=== PATIENT | male | born 1955 | race African-American/Black ===

== ENCOUNTER 2017-01-12 18:31 | Emergency (ER) | payer SELFPAY ==
[~2017-01-12] VITALS: Ht 172.7 cm; Wt 82.0 kg
[~2017-01-12 18:31] MED LIST: ALBU25PO2 HHN; AMLO5TAB88 PO; ASPI325T2 PO; PRED-431 PO; QUET200T PO; RISP2 PO
[2017-01-12 19:03] LABS: CHLORIDE 107 mEq/L (98-107); INR 1.2; PROTHROMBIN TIME 12.2 sec
[2017-01-12 19:08] LABS: CARBON DIOXIDE 24 mEq/L (21-32); ETHANOL BLOOD 27 mg/dL
[2017-01-12 19:11] LABS: BASOPHILS % 0.6 % (0.0-2.0); EOSINOPHILS % 1.8 % (0.0-5.0); HEMATOCRIT. 33.6 % (42.0-52.0); HEMOGLOBIN. 11.1 g/dL (14.0-18.0); LYMPHOCYTES % 16.4 % (20.0-50.0); MEAN CORPUSCULAR HEMOGLOBIN 25.7 pg (28.0-32.0); MEAN CORPUSCULAR VOLUME 77.9 fL (80.0-94.0); MEAN PLATELET VOLUME 9.3 fl (7.4-10.4); MONOCYTES % 12.8 % (2.0-8.0); NEUTROPHILS % 68.4 % (40.0-76.0); PLATELET 138 x1000/uL (130-400); RED BLOOD CELL COUNT 4.31 mill/uL (4.7-6.1); RED CELL DISTRIBUTION WIDTH 15.7 % (11.6-14.6)
[2017-01-12 19:12] LABS: TROPONIN I < 0.02 ng/mL (0.00-0.04)
[2017-01-12 21:43] LABS: *AMPHETAMINES SCREEN URINE NEGATIVE (NEGATIVE); *BARBITURATES SCREEN URINE NEGATIVE (NEGATIVE); *BENZODIAZEPINES SCREEN URINE NEGATIVE (NEGATIVE); *COCAINE SCREEN URINE PRESUMTIVE POSITIVE (NEGATIVE); CANNABINOID URINE SCREEN NEGATIVE (NEGATIVE); METHADONE URINE SCREEN NEGATIVE (NEGATIVE); OPIATES URINE SCREEN NEGATIVE (NEGATIVE); PHENCYCLIDINE URINE SCREEN NEGATIVE (NEGATIVE)
[2017-01-12] MEDS ORDERED: DIPHENHYDRAMINE 25MG CAPSULE PO ONE (22:30)
[2017-01-12] MEDS ORDERED: POTASSIUM CHLORIDE 20MEQ TABLET SR PO ONE (23:15)
[2017-01-13 04:30] VITALS: BP 123/76
== END 2017-01-13 06:53 | disposition home or self-care (01) ==
LOC: ER 18:41
DX: T40.5X1A Poisoning by cocaine, accidental (unintentional), initial encounter (principal); E87.6 Hypokalemia; R07.89 Other chest pain; J44.9 Chronic obstructive pulmonary disease, unspecified; E11.9 Type 2 diabetes mellitus without complications; I10 Essential (primary) hypertension; Z88.0 Allergy status to penicillin; Z79.82 Long term (current) use of aspirin; Y92.9 Unspecified place or not applicable
CPT/HCPCS: 36415; 71010; 80053; 80305; 83880; 84484; 85025; 85610; 93005; 99285; G0482; Z7610; Q0163

== ENCOUNTER 2017-01-13 07:15 | Emergency (ER) | payer SELFPAY ==
[~2017-01-13] VITALS: Ht 172.7 cm; Wt 96.0 kg
[~2017-01-13 07:15] MED LIST changes: +ASPI-986 PO; -ASPI325T2 PO
[2017-01-13 11:01] VITALS: BP 122/82
[2017-01-13 12:15] LABS: BASOPHILS % 0.4 % (0.0-2.0); EOSINOPHILS % 2.8 % (0.0-5.0); HEMATOCRIT. 34.8 % (42.0-52.0); HEMOGLOBIN. 11.7 g/dL (14.0-18.0); LYMPHOCYTES % 24.8 % (20.0-50.0); MEAN CORPUSCULAR HEMOGLOBIN 26.1 pg (28.0-32.0); MEAN CORPUSCULAR VOLUME 77.3 fL (80.0-94.0); MEAN PLATELET VOLUME 8.5 fl (7.4-10.4); MONOCYTES % 12.4 % (2.0-8.0); NEUTROPHILS % 59.6 % (40.0-76.0); PLATELET 134 x1000/uL (130-400); RED CELL DISTRIBUTION WIDTH 15.5 % (11.6-14.6)
[2017-01-13 12:29] LABS: CARBON DIOXIDE 26 mEq/L (21-32); CHLORIDE 109 mEq/L (98-107); ETHANOL BLOOD < 10 mg/dL
[2017-01-13] MEDS ORDERED: QUETIAPINE FUMARATE 100MG TABLET PO SCH ×2 (12:30)
[2017-01-13 14:12] LABS: *AMPHETAMINES SCREEN URINE NEGATIVE (NEGATIVE); *BARBITURATES SCREEN URINE NEGATIVE (NEGATIVE); *BENZODIAZEPINES SCREEN URINE NEGATIVE (NEGATIVE); *COCAINE SCREEN URINE PRESUMTIVE POSITIVE (NEGATIVE); CANNABINOID URINE SCREEN NEGATIVE (NEGATIVE); METHADONE URINE SCREEN NEGATIVE (NEGATIVE); OPIATES URINE SCREEN NEGATIVE (NEGATIVE); PHENCYCLIDINE URINE SCREEN NEGATIVE (NEGATIVE)
== END 2017-01-13 17:34 | disposition home or self-care (01) ==
LOC: ER 08:02
DX: R45.851 Suicidal ideations (principal); R44.0 Auditory hallucinations; R45.850 Homicidal ideations; I10 Essential (primary) hypertension; J44.9 Chronic obstructive pulmonary disease, unspecified; E11.9 Type 2 diabetes mellitus without complications; F17.200 Nicotine dependence, unspecified, uncomplicated; Z88.0 Allergy status to penicillin; Z79.82 Long term (current) use of aspirin
CPT/HCPCS: 36415; 80048; 80305; 80307; 80329; 85025; 99284; G0482

== ENCOUNTER 2018-01-28 19:57 | Emergency (ER) | payer MEDICAID ==
[~2018-01-28] VITALS: Ht 182.9 cm; Wt 170.0 kg
[2018-01-28 21:27] LABS: BASOPHILS % 0.8 % (0.0-2.0); EOSINOPHILS % 0.2 % (0.0-5.0); HEMOGLOBIN. 11.5 g/dL (14.0-18.0); LYMPHOCYTES % 9.7 % (20.0-50.0); MEAN CORPUSCULAR HEMOGLOBIN 25.7 pg (28.0-32.0); MEAN CORPUSCULAR VOLUME 77.8 fL (80.0-94.0); MEAN PLATELET VOLUME 9.5 fl (7.4-10.4); MONOCYTES % 6.9 % (2.0-8.0); NEUTROPHILS % 82.4 % (40.0-76.0); PLATELET 121 x1000/uL (130-400)
[2018-01-28 21:30] LABS: CHLORIDE 106 mEq/L (98-107)
[2018-01-28 21:32] LABS: INR 1.1; PROTHROMBIN TIME 11.8 sec (9.4-11.6)
[2018-01-29 00:17] VITALS: BP 128/76
[2018-01-30] MEDS ORDERED: PRED-431 PO (06:22)
[2018-01-30] MEDS ORDERED: QUET200T PO (06:22)
[2018-01-30] MEDS ORDERED: ALBU25PO2 HHN (06:22)
[2018-01-30] MEDS ORDERED: RISP2 PO (06:22)
== END 2018-01-29 00:19 | disposition home or self-care (01) ==
LOC: ER 19:57
DX: R07.89 Other chest pain (principal); D72.829 Elevated white blood cell count, unspecified; D50.9 Iron deficiency anemia, unspecified; R74.0 Nonspecific elevation of levels of transaminase and lactic acid dehydrogenase [LDH]; D69.6 Thrombocytopenia, unspecified; J44.9 Chronic obstructive pulmonary disease, unspecified; F20.9 Schizophrenia, unspecified; E11.9 Type 2 diabetes mellitus without complications; F17.200 Nicotine dependence, unspecified, uncomplicated; Z88.0 Allergy status to penicillin
CPT/HCPCS: 36415; 71045; 80053; 83880; 84484; 85025; 85610; 93005; 99285; Z7610

== ENCOUNTER 2018-01-29 03:50 | Emergency (ER) | payer SELFPAY ==
[2018-01-30] MEDS ORDERED: RISP2 PO (06:22)
[2018-01-30] MEDS ORDERED: ALBU25PO2 HHN (06:22)
[2018-01-30] MEDS ORDERED: QUET200T PO (06:22)
[2018-01-30] MEDS ORDERED: PRED-431 PO (06:22)
== END 2018-01-29 08:36 | disposition left against medical advice (07) ==
LOC: ER 03:50
DX: R06.02 Shortness of breath (principal); Z53.21 Procedure and treatment not carried out due to patient leaving prior to being seen by health care provider

== ENCOUNTER 2018-08-14 04:08 | Inpatient (IN) | payer MEDICAID ==
[~2018-08-14] VITALS: Ht 172.7 cm; Wt 90.7 kg
[2018-08-14] MEDS ORDERED: IPRATROPIUM BROMIDE (0.02%) 0.5MG/2.5ML NEB HHN STA (04:36)
[2018-08-14] MEDS ORDERED: ALBUTEROL (0.083%) 2.5MG/3ML NEB HHN STA (04:36)
[2018-08-14] MEDS ORDERED: PREDNISONE 20MG TABLET PO STA (04:36)
[2018-08-14] MEDS ORDERED: MAGNESIUM 2 G PREMIX 50 ML IV ONE (04:45)
[2018-08-14 05:20] LABS: CHLORIDE 103 mEq/L (98-107)
[2018-08-14 05:31] LABS: HEMATOCRIT. 43.2 % (42.0-52.0); HEMOGLOBIN. 14.4 g/dL (14.0-18.0); MEAN CORPUSCULAR HEMOGLOBIN 27.1 pg (28.0-32.0); MEAN CORPUSCULAR VOLUME 81.3 fL (80.0-94.0); MEAN PLATELET VOLUME 9.2 fl (7.4-10.4); PLATELET 150 x1000/uL (130-400); RED BLOOD CELL COUNT 5.32 mill/uL (4.7-6.1); RED CELL DISTRIBUTION WIDTH 15.9 % (11.6-14.6)
[2018-08-14] MEDS ORDERED: ALBUTEROL (0.5%) 2.5MG/0.5ML NEB HHN ONE (05:34)
[2018-08-14] MEDS ORDERED: IPRATROPIUM/ALBUTEROL 0.5-3(2.5)MG/3ML NEB ONE (05:34)
[2018-08-14 06:13] LABS: PLATELET ESTIMATE NORMAL
[2018-08-14 10:54] VITALS: BP 147/91
[2018-08-14] MEDS ORDERED: METF-815 MT (11:24)
[2018-08-14 12:00] VITALS: BP 131/87
[2018-08-14] MEDS ORDERED: ONDANSETRON HCL 4MG/2ML INJ IV PRN (13:15)
[2018-08-14] MEDS ORDERED: HYDROCODONE/ACETAMINOPHEN 5/325MG TABLET PO PRN (13:15)
[2018-08-14] MEDS ORDERED: AMLODIPINE 5MG TABLET PO SCH (13:15)
[2018-08-14] MEDS ORDERED: DEXTROSE 50% WATER 50ML SYRINGE IV PRN (13:15)
[2018-08-14] MEDS ORDERED: POTASSIUM CHLORIDE 20MEQ TABLET SR PO NR (13:38)
[2018-08-14] MEDS: METHYLPREDNISOLONE SOD SUCC 40 MG/ML VIAL IV SCH ×2 (14:52→21:23)
[2018-08-14] MEDS: ENOXAPARIN 40MG/0.4ML SYR SUBCUT SCH (14:52)
[2018-08-14] MEDS: ASPIRIN 81MG TABLET PO SCH (14:53)
[2018-08-14] MEDS: LEVOFLOXACIN 500MG PREMIX 100 ML IV SCH (14:54)
[2018-08-14 16:00] VITALS: BP 129/82
[2018-08-14] MEDS: IPRATROPIUM/ALBUTEROL 0.5-3(2.5)MG/3ML NEB HHN SCH ×2 (17:07→22:23)
[2018-08-14] MEDS: INSULIN LISPRO 100 UNITS/ML SUBCUT SCH ×2 (17:30→21:00)
[2018-08-14] MEDS: BLOOD SUGAR DIAGNOSTIC STRIP TEST SCH ×2 (17:30→21:26)
[2018-08-14 18:21] LABS: CREATINE KINASE MB FRACTION 5.5 ng/mL (0.5-3.6)
[2018-08-14 20:00] VITALS: BP 138/84
[2018-08-14] MEDS: AMLODIPINE 5MG TABLET PO SCH (21:23)
[2018-08-14] MEDS: QUETIAPINE FUMARATE 100MG TABLET PO SCH (21:23)
[2018-08-15] VITALS: BP 125/63
[2018-08-15 00:24] LABS: CREATINE KINASE MB FRACTION 5.2 ng/mL (0.5-3.6)
[2018-08-15] MEDS: IPRATROPIUM/ALBUTEROL 0.5-3(2.5)MG/3ML NEB HHN SCH ×5 (02:24→19:55)
[2018-08-15 04:00] VITALS: BP 113/70
[2018-08-15] MEDS: METHYLPREDNISOLONE SOD SUCC 40 MG/ML VIAL IV SCH ×3 (05:12→21:06)
[2018-08-15 06:37] LABS: BASOPHILS % 0.1 % (0.0-2.0); EOSINOPHILS % 0.1 % (0.0-5.0); HEMATOCRIT. 37.3 % (42.0-52.0); HEMOGLOBIN. 12.5 g/dL (14.0-18.0); LYMPHOCYTES % 16.3 % (20.0-50.0); MEAN CORPUSCULAR HEMOGLOBIN 27.3 pg (28.0-32.0); MEAN CORPUSCULAR VOLUME 81.5 fL (80.0-94.0); MEAN PLATELET VOLUME 9.6 fl (7.4-10.4); NEUTROPHILS % 76.5 % (40.0-76.0); PLATELET 137 x1000/uL (130-400); RED BLOOD CELL COUNT 4.58 mill/uL (4.7-6.1); RED CELL DISTRIBUTION WIDTH 15.9 % (11.6-14.6)
[2018-08-15] MEDS: BLOOD SUGAR DIAGNOSTIC STRIP TEST SCH ×4 (06:42→21:16)
[2018-08-15] MEDS: INSULIN LISPRO 100 UNITS/ML SUBCUT SCH ×4 (06:42→21:00)
[2018-08-15 07:01] LABS: CHLORIDE 105 mEq/L (98-107)
[2018-08-15 08:00] VITALS: BP 104/58
[2018-08-15 08:01] LABS: *AMPHETAMINES SCREEN URINE PRESUMTIVE POSITIVE (NEGATIVE); *BARBITURATES SCREEN URINE NEGATIVE (NEGATIVE); *BENZODIAZEPINES SCREEN URINE NEGATIVE (NEGATIVE); *COCAINE SCREEN URINE PRESUMTIVE POSITIVE (NEGATIVE)
[2018-08-15 08:02] LABS: CANNABINOID URINE SCREEN NEGATIVE (NEGATIVE); METHADONE URINE SCREEN NEGATIVE (NEGATIVE); OPIATES URINE SCREEN PRESUMTIVE POSITIVE (NEGATIVE); PHENCYCLIDINE URINE SCREEN NEGATIVE (NEGATIVE)
[2018-08-15 12:00] VITALS: BP 110/59
[2018-08-15] MEDS: AMLODIPINE 5MG TABLET PO SCH ×2 (14:34→21:06)
[2018-08-15] MEDS: ENOXAPARIN 40MG/0.4ML SYR SUBCUT SCH (14:34)
[2018-08-15] MEDS: ASPIRIN 81MG TABLET PO SCH (14:35)
[2018-08-15] MEDS: LEVOFLOXACIN 500MG PREMIX 100 ML IV SCH (15:00)
[2018-08-15 20:00] VITALS: BP 148/87
[2018-08-15] MEDS: QUETIAPINE FUMARATE 100MG TABLET PO SCH (21:05)
[2018-08-16] VITALS: BP 128/79
[2018-08-16] MEDS: IPRATROPIUM/ALBUTEROL 0.5-3(2.5)MG/3ML NEB HHN SCH ×5 (00:06→15:47)
[2018-08-16 04:00] VITALS: BP 132/83
[2018-08-16] MEDS: METHYLPREDNISOLONE SOD SUCC 40 MG/ML VIAL IV SCH ×2 (06:05→14:00)
[2018-08-16] MEDS: BLOOD SUGAR DIAGNOSTIC STRIP TEST SCH ×2 (06:05→12:34)
[2018-08-16] MEDS: INSULIN LISPRO 100 UNITS/ML SUBCUT SCH ×2 (06:30→12:35)
[2018-08-16 08:00] VITALS: BP 142/87
[2018-08-16] MEDS: ENOXAPARIN 40MG/0.4ML SYR SUBCUT SCH ×2 (09:00→09:12)
[2018-08-16] MEDS: ASPIRIN 81MG TABLET PO SCH (09:12)
[2018-08-16] MEDS: AMLODIPINE 5MG TABLET PO SCH (09:12)
[2018-08-16] MEDS ORDERED: LEVOFLOXACIN 500MG TABLET PO SCH (11:00)
[2018-08-16 12:00] VITALS: BP 138/88
[2018-08-16 16:37] VITALS: BP 119/77
== END 2018-08-16 17:20 | disposition home or self-care (01) | DRG 140 ==
LOC: ER 04:08 → 8WST 05:39 → EDBEDREQTM 05:41 → EDBEDREQ 05:41 → ENRESERV 08:59
PROVIDERS: ADMIT Internal Medicine; ATTEND Internal Medicine
DX: J44.1 Chronic obstructive pulmonary disease with (acute) exacerbation (principal); I11.0 Hypertensive heart disease with heart failure; I50.9 Heart failure, unspecified; R07.89 Other chest pain; E11.9 Type 2 diabetes mellitus without complications; F10.20 Alcohol dependence, uncomplicated; E87.6 Hypokalemia; F17.200 Nicotine dependence, unspecified, uncomplicated; I25.10 Atherosclerotic heart disease of native coronary artery without angina pectoris; R74.0 Nonspecific elevation of levels of transaminase and lactic acid dehydrogenase [LDH]; F19.10 Other psychoactive substance abuse, uncomplicated; F99 Mental disorder, not otherwise specified; Z59.0 Homelessness; Z88.0 Allergy status to penicillin
CPT/HCPCS: 36415; 71045; 80048; 80305; 82553; 82962; 83735; 83880; 84484; 93005; 93306; 93970; 94640; 96365; 99285; C1893; J1650; J1815; J1956; J2920; J3475; J7050; J7512; J7611; J7620

== ENCOUNTER 2019-03-09 03:24 | Inpatient (IN) | payer MEDICAID ==
[~2019-03-09] VITALS: Ht 170.2 cm; Wt 82.1 kg
[~2019-03-09 03:24] MED LIST changes: +METF-815 MT
[2019-03-09] MEDS ORDERED: IPRATROPIUM BROMIDE (0.02%) 0.5MG/2.5ML NEB HHN STA (03:49)
[2019-03-09] MEDS ORDERED: ALBUTEROL (0.083%) 2.5MG/3ML NEB HHN STA (03:49)
[2019-03-09] MEDS ORDERED: METHYLPREDNISOLONE SOD SUCC 125 MG/2 ML VIAL IV STA (03:49)
[2019-03-09] MEDS ORDERED: ASPIRIN 81MG TABLET PO ONE (04:00)
[2019-03-09] MEDS ORDERED: NITROGLYCERIN 0.4MG TABLET SL SL PRN (04:00)
[2019-03-09 04:16] LABS: BASOPHILS % 0.4 % (0.0-2.0); HEMATOCRIT. 34.5 % (42.0-52.0); HEMOGLOBIN. 11.6 g/dL (14.0-18.0); LYMPHOCYTES % 31.6 % (20.0-50.0); MEAN CORPUSCULAR HEMOGLOBIN 27.3 pg (28.0-32.0); MEAN CORPUSCULAR VOLUME 81.5 fL (80.0-94.0); MEAN PLATELET VOLUME 8.8 fl (7.4-10.4); MONOCYTES % 12.3 % (2.0-8.0); NEUTROPHILS % 51.7 % (40.0-76.0); PLATELET 96 x1000/uL (130-400); RED BLOOD CELL COUNT 4.24 mill/uL (4.7-6.1); RED CELL DISTRIBUTION WIDTH 16.7 % (11.6-14.6)
[2019-03-09 04:17] LABS: CHLORIDE 111 mEq/L (98-107)
[2019-03-09 04:20] LABS: INR 1.1; PARTIAL THROMBOPLASTIN TIME 29.6 sec (23.4-31.0); PROTHROMBIN TIME 11.4 sec (9.6-11.0)
[2019-03-09] MEDS ORDERED: POTASSIUM CHLORIDE 20MEQ TABLET SR PO ONE (05:30)
[2019-03-09] MEDS ORDERED: ACETAMINOPHEN 325MG TABLET PO PRN (07:45)
[2019-03-09] MEDS ORDERED: IPRATROPIUM/ALBUTEROL 0.5-3(2.5)MG/3ML NEB HHN PRN (07:45)
[2019-03-09] MEDS ORDERED: ONDANSETRON HCL 4MG/2ML INJ IV PRN (07:45)
[2019-03-09 09:45] VITALS: BP 141/99
[2019-03-09 10:00] VITALS: BP 141/99
[2019-03-09 12:00] VITALS: BP 149/90
[2019-03-09] MEDS: AMLODIPINE 5MG TABLET PO SCH ×2 (13:56→17:19)
[2019-03-09] MEDS: METHYLPREDNISOLONE SOD SUCC 40 MG/ML VIAL IV SCH ×2 (13:56→20:48)
[2019-03-09] MEDS: FAMOTIDINE 20MG TABLET PO SCH ×2 (13:56→20:48)
[2019-03-09 16:00] VITALS: BP 185/109
[2019-03-09] MEDS: IPRATROPIUM/ALBUTEROL 0.5-3(2.5)MG/3ML NEB HHN SCH ×2 (16:24→21:05)
[2019-03-09] MEDS: METFORMIN HCL 500MG TABLET PO SCH (17:18)
[2019-03-09 19:56] VITALS: BP 172/103
[2019-03-09] MEDS: QUETIAPINE FUMARATE 50MG TABLET PO SCH (20:48)
[2019-03-09] MEDS ORDERED: ZOLPIDEM TARTRATE 5MG TABLET PO PRN (21:00)
[2019-03-10 00:10] VITALS: BP 132/71
[2019-03-10] MEDS: IPRATROPIUM/ALBUTEROL 0.5-3(2.5)MG/3ML NEB HHN SCH ×6 (00:54→21:11)
[2019-03-10 04:05] VITALS: BP 129/69
[2019-03-10] MEDS: METHYLPREDNISOLONE SOD SUCC 40 MG/ML VIAL IV SCH ×3 (05:17→22:29)
[2019-03-10] MEDS: METFORMIN HCL 500MG TABLET PO SCH ×2 (06:34→18:20)
[2019-03-10 07:12] LABS: CHLORIDE 110 mEq/L (98-107)
[2019-03-10 07:26] LABS: BASOPHILS % 0.2 % (0.0-2.0); HEMATOCRIT. 35.5 % (42.0-52.0); HEMOGLOBIN. 11.9 g/dL (14.0-18.0); LYMPHOCYTES % 8.9 % (20.0-50.0); MEAN CORPUSCULAR VOLUME 80.7 fL (80.0-94.0); MEAN PLATELET VOLUME 9.8 fl (7.4-10.4); MONOCYTES % 5.4 % (2.0-8.0); NEUTROPHILS % 85.5 % (40.0-76.0); PLATELET 115 x1000/uL (130-400); RED CELL DISTRIBUTION WIDTH 16.2 % (11.6-14.6)
[2019-03-10 08:00] VITALS: BP 146/77
[2019-03-10] MEDS ORDERED: RISPERIDONE 2 MG PO SCH (09:00)
[2019-03-10] MEDS: AMLODIPINE 5MG TABLET PO SCH ×2 (09:23→22:29)
[2019-03-10] MEDS: FAMOTIDINE 20MG TABLET PO SCH ×2 (09:23→22:32)
[2019-03-10] MEDS: RISPERIDONE 1MG TABLET PO SCH (09:23)
[2019-03-10 12:00] VITALS: BP 136/86
[2019-03-10 16:00] VITALS: BP 134/81
[2019-03-10] MEDS ORDERED: MEDICATION NOT ON FORMULARY EA (Quetiapine Fumarate (Seroquel) 200 MG) PO SCH (17:00)
[2019-03-10 20:00] VITALS: BP 113/65
[2019-03-10] MEDS: QUETIAPINE FUMARATE 50MG TABLET PO SCH (22:30)
[2019-03-11] VITALS: BP 143/67
[2019-03-11 00:17] LABS: CLARITY URINE CLEAR (CLEAR); COLOR URINE YELLOW (YELLOW); KETONES URINE TRACE (NEGATIVE); LEUKOCYTE ESTERASE URINE NEGATIVE (NEGATIVE); NITRITE URINE NEGATIVE (NEGATIVE); OCCULT BLOOD URINE NEGATIVE (NEGATIVE); PROTEIN URINE NEGATIVE (NEGATIVE); SPECIFIC GRAVITY URINE 1.024 (1.005-1.030); UROBILINOGEN URINE 0.2 E.U./dL (0.2-1.0)
[2019-03-11] MEDS: IPRATROPIUM/ALBUTEROL 0.5-3(2.5)MG/3ML NEB HHN SCH ×5 (00:20→16:14)
[2019-03-11 00:27] LABS: *BARBITURATES SCREEN URINE NEGATIVE (NEGATIVE); *COCAINE SCREEN URINE NEGATIVE (NEGATIVE)
[2019-03-11 00:28] LABS: *AMPHETAMINES SCREEN URINE NEGATIVE (NEGATIVE); *BENZODIAZEPINES SCREEN URINE NEGATIVE (NEGATIVE); CANNABINOID URINE SCREEN NEGATIVE (NEGATIVE); METHADONE URINE SCREEN NEGATIVE (NEGATIVE); OPIATES URINE SCREEN NEGATIVE (NEGATIVE)
[2019-03-11 00:30] LABS: PHENCYCLIDINE URINE SCREEN NEGATIVE (NEGATIVE)
[2019-03-11 04:00] VITALS: BP 150/71
[2019-03-11] MEDS: METHYLPREDNISOLONE SOD SUCC 40 MG/ML VIAL IV SCH (04:50)
[2019-03-11 08:00] VITALS: BP 121/74
[2019-03-11] MEDS: METFORMIN HCL 500MG TABLET PO SCH ×2 (08:47→17:16)
[2019-03-11] MEDS: FAMOTIDINE 20MG TABLET PO SCH (08:47)
[2019-03-11] MEDS: AMLODIPINE 5MG TABLET PO SCH (08:47)
[2019-03-11] MEDS: RISPERIDONE 1MG TABLET PO SCH (08:48)
[2019-03-11 10:39] LABS: CHLORIDE 110 mEq/L (98-107)
[2019-03-11 10:47] LABS: TOTAL IRON BINDING CAPACITY 311 ug/dL (250-450)
[2019-03-11 12:00] VITALS: BP 128/70
[2019-03-11 16:00] VITALS: BP 134/79
[2019-03-11] MEDS ORDERED: QUETIAPINE FUMARATE 50MG TABLET PO SCH (17:00)
[2019-03-11] MEDS ORDERED: P20 MT ×2 (17:03)
[2019-03-11] MEDS ORDERED: PRED10TA MT (17:03)
[2019-03-11] MEDS ORDERED: RISP1 PO (17:03)
[2019-03-11] MEDS ORDERED: QUET50TA PO (17:03)
[2019-03-11] MEDS ORDERED: AMLO5TAB88 PO (17:03)
[2019-03-11 17:51] VITALS: BP 134/79
[2019-03-12] MEDS ORDERED: RISPERIDONE 1MG TABLET PO SCH (09:00)
[2019-03-12] MEDS ORDERED: PREDNISONE 20MG TABLET PO SCH (09:00)
== END 2019-03-11 18:40 | disposition home or self-care (01) | DRG 133 ==
LOC: ER 03:24 → 5WST 06:39 → EDBEDREQTM 06:40 → EDBEDREQ 06:40 → ENRESERV 08:03
PROVIDERS: ADMIT Internal Medicine; ATTEND Internal Medicine
DX: J96.00 Acute respiratory failure, unspecified whether with hypoxia or hypercapnia (principal); J18.9 Pneumonia, unspecified organism; D69.6 Thrombocytopenia, unspecified; J43.9 Emphysema, unspecified; E87.8 Other disorders of electrolyte and fluid balance, not elsewhere classified; I45.81 Long QT syndrome; J45.901 Unspecified asthma with (acute) exacerbation; E11.9 Type 2 diabetes mellitus without complications; D64.9 Anemia, unspecified; E87.6 Hypokalemia; I10 Essential (primary) hypertension; F17.210 Nicotine dependence, cigarettes, uncomplicated; G40.909 Epilepsy, unspecified, not intractable, without status epilepticus; F99 Mental disorder, not otherwise specified; F15.90 Other stimulant use, unspecified, uncomplicated; F10.10 Alcohol abuse, uncomplicated; F14.10 Cocaine abuse, uncomplicated; Z79.84 Long term (current) use of oral hypoglycemic drugs; I69.392 Facial weakness following cerebral infarction; Z88.0 Allergy status to penicillin; Z79.899 Other long term (current) drug therapy
CPT/HCPCS: 36415; 71045; 80048; 80061; 80305; 82693; 82728; 83540; 83550; 83880; 84484; 93005; 93970; 94640; 94644; 96374; 99285; J2920; J2930; J7611; J7620

== ENCOUNTER 2019-04-05 11:49 | Emergency (ER) | payer SELFPAY ==
[~2019-04-05] VITALS: Ht 172.7 cm; Wt 95.0 kg
[~2019-04-05 11:49] MED LIST changes: +P20 MT; -PRED-431 PO; +PRED10TA MT; -QUET200T PO; +QUET50TA PO; +RISP1 PO; -RISP2 PO
[2019-04-05] MEDS ORDERED: PREDNISONE 20MG TABLET PO ONE (12:30)
[2019-04-05] MEDS ORDERED: IPRATROPIUM/ALBUTEROL 0.5-3(2.5)MG/3ML NEB HHN ONE (12:30)
[2019-04-05 13:15] LABS: BASOPHILS % 0.2 % (0.0-2.0); EOSINOPHILS % 0.8 % (0.0-5.0); HEMATOCRIT. 35.1 % (42.0-52.0); HEMOGLOBIN. 11.8 g/dL (14.0-18.0); LYMPHOCYTES % 15.5 % (20.0-50.0); MEAN CORPUSCULAR HEMOGLOBIN 27.3 pg (28.0-32.0); MEAN CORPUSCULAR VOLUME 81.3 fL (80.0-94.0); MEAN PLATELET VOLUME 9.6 fl (7.4-10.4); MONOCYTES % 2.8 % (2.0-8.0); NEUTROPHILS % 80.7 % (40.0-76.0); PLATELET 78 x1000/uL (130-400); RED BLOOD CELL COUNT 4.32 mill/uL (4.7-6.1); RED CELL DISTRIBUTION WIDTH 16.1 % (11.6-14.6)
[2019-04-05 13:21] LABS: CHLORIDE 110 mEq/L (98-107)
[2019-04-05] MEDS ORDERED: KETOROLAC 60MG/2ML VIAL IM ONE (14:15)
[2019-04-05 14:28] VITALS: BP 129/80
== END 2019-04-05 14:25 | disposition home or self-care (01) ==
LOC: ER 11:49
DX: J44.1 Chronic obstructive pulmonary disease with (acute) exacerbation (principal); E11.9 Type 2 diabetes mellitus without complications; I10 Essential (primary) hypertension; Z88.0 Allergy status to penicillin
CPT/HCPCS: 36415; 71045; 80053; 83880; 84484; 85025; 93005; 96372; 99284; J1885; J7512; J7620

== ENCOUNTER 2019-04-21 13:44 | Emergency (ER) | payer SELFPAY ==
[~2019-04-21] VITALS: Ht 170.2 cm; Wt 63.0 kg
[2019-04-21] MEDS ORDERED: ACETAMINOPHEN 325MG TABLET PO ONE (15:30)
[2019-04-21 15:48] VITALS: BP 138/89
== END 2019-04-21 15:49 | disposition home or self-care (01) ==
LOC: ER 13:44
DX: Z76.0 Encounter for issue of repeat prescription (principal); R51 Headache; J44.9 Chronic obstructive pulmonary disease, unspecified; Z88.0 Allergy status to penicillin
CPT/HCPCS: 99283

== ENCOUNTER 2019-04-27 07:02 | Emergency (ER) | payer MEDICAID ==
[~2019-04-27] VITALS: Ht 177.8 cm; Wt 79.0 kg
[2019-04-27] MEDS ORDERED: ALBUTEROL (0.083%) 2.5MG/3ML NEB HHN STA (07:30)
[2019-04-27] MEDS ORDERED: IPRATROPIUM BROMIDE (0.02%) 0.5MG/2.5ML NEB HHN STA (07:30)
[2019-04-27] MEDS ORDERED: METHYLPREDNISOLONE SOD SUCC 125 MG/2 ML VIAL IV STA (07:30)
[2019-04-27 07:53] LABS: BASOPHILS % 0.5 % (0.0-2.0); EOSINOPHILS % 3.3 % (0.0-5.0); HEMATOCRIT. 36.8 % (42.0-52.0); HEMOGLOBIN. 12.4 g/dL (14.0-18.0); LYMPHOCYTES % 36.5 % (20.0-50.0); MEAN CORPUSCULAR HEMOGLOBIN 27.4 pg (28.0-32.0); MEAN CORPUSCULAR VOLUME 81.2 fL (80.0-94.0); MONOCYTES % 12.9 % (2.0-8.0); NEUTROPHILS % 46.8 % (40.0-76.0); PLATELET 80 x1000/uL (130-400); RED BLOOD CELL COUNT 4.53 mill/uL (4.7-6.1); RED CELL DISTRIBUTION WIDTH 15.9 % (11.6-14.6)
[2019-04-27 08:02] LABS: CHLORIDE 109 mEq/L (98-107)
[2019-04-27 09:30] VITALS: BP 136/88
== END 2019-04-27 09:45 | disposition home or self-care (01) ==
LOC: ER 07:16
DX: J45.901 Unspecified asthma with (acute) exacerbation (principal); I10 Essential (primary) hypertension; Z88.0 Allergy status to penicillin; Z79.899 Other long term (current) drug therapy
CPT/HCPCS: 36415; 71045; 80053; 83880; 84484; 85025; 93005; 94640; 96374; 99284; J2930; J7611; Z7610

== ENCOUNTER 2019-07-21 01:45 | Emergency (ER) | payer MEDICAID, OTHER ==
[~2019-07-21] VITALS: Ht 172.7 cm; Wt 100.0 kg
[~2019-07-21 01:45] MED LIST changes: +ALBU18HF2 IH; +ASPI-1393 PO; -ASPI-986 PO; +FLUT1DIS2 INH; -METF-815 MT; -P20 MT; -PRED10TA MT; -RISP1 PO
[2019-07-21] MEDS ORDERED: MAGNESIUM 2 G PREMIX 50 ML IV STA (01:57)
[2019-07-21] MEDS ORDERED: IPRATROPIUM BROMIDE (0.02%) 0.5MG/2.5ML NEB HHN STA (01:57)
[2019-07-21] MEDS ORDERED: ALBUTEROL (0.083%) 2.5MG/3ML NEB HHN STA (01:57)
[2019-07-21] MEDS ORDERED: METHYLPREDNISOLONE SOD SUCC 125 MG/2 ML VIAL IV STA (01:57)
[2019-07-21 02:11] LABS: HEMATOCRIT 33.4 % (42.0-52.0); HEMOGLOBIN 11.1 g/dL (14.0-18.0); MEAN CORPUSCULAR HEMOGLOBIN 28.2 pg (28.0-32.0); MEAN CORPUSCULAR VOLUME 84.4 fL (80.0-94.0); PLATELET 109 x1000/uL (130-400); RED BLOOD CELL COUNT 3.96 mill/uL (4.7-6.1); RED CELL DISTRIBUTION WIDTH 16.1 % (11.6-14.6)
[2019-07-21 02:15] LABS: CHLORIDE 105 mEq/L (98-107)
[2019-07-21] MEDS ORDERED: LABETALOL 5MG/ML SYR 20 MG/4 ML SYRINGE IV SCH (02:45)
[2019-07-21] MEDS ORDERED: INSULIN LISPRO 100 UNITS/ML SUBCUT SCH (02:45)
[2019-07-21 04:25] VITALS: BP 170/92
== END 2019-07-21 05:30 | disposition left against medical advice (07) ==
LOC: ER 01:45 → CANBEDREQ 04:44 → ER 05:30
DX: J44.1 Chronic obstructive pulmonary disease with (acute) exacerbation (principal); R73.9 Hyperglycemia, unspecified; I11.0 Hypertensive heart disease with heart failure; I50.9 Heart failure, unspecified; F17.210 Nicotine dependence, cigarettes, uncomplicated; Z66 Do not resuscitate; Z88.0 Allergy status to penicillin; Z79.82 Long term (current) use of aspirin; Z71.6 Tobacco abuse counseling
CPT/HCPCS: 36415; 71045; 80053; 82962; 85027; 94644; 94660; 96365; 96372; 96375; 99285; 99406; J1815; J2930; J3475; J3490; J7611; Z7610

== ENCOUNTER 2019-10-13 00:29 | Inpatient (IN) | payer MEDICAID ==
[~2019-10-13] VITALS: Ht 172.7 cm; Wt 97.6 kg
[2019-10-13] VITALS (9 sets, daily range): BP systolic 116–158; BP diastolic 63–83
[~2019-10-13 00:29] MED LIST changes: -ASPI-1393 PO; +ASPI-1497 PO
[2019-10-13] MEDS ORDERED: FUROSEMIDE 40MG/4ML VIAL IVP ONE (00:45)
[2019-10-13] MEDS ORDERED: NITROGLYCERIN 0.4MG TABLET SL SL PRN (00:45)
[2019-10-13] MEDS ORDERED: DIPHENHYDRAMINE 25MG CAPSULE PO ONE (01:15)
[2019-10-13 01:41] LABS: BASOPHILS % 0.7 % (0.0-2.0); EOSINOPHILS % 1.6 % (0.0-5.0); HEMATOCRIT. 41.8 % (42.0-52.0); HEMOGLOBIN. 14.3 g/dL (14.0-18.0); LYMPHOCYTES % 17.2 % (20.0-50.0); MEAN CORPUSCULAR HEMOGLOBIN 29.1 pg (28.0-32.0); MEAN CORPUSCULAR VOLUME 85.3 fL (80.0-94.0); MONOCYTES % 12.3 % (2.0-8.0); NEUTROPHILS % 68.2 % (40.0-76.0); RED CELL DISTRIBUTION WIDTH 15.2 % (11.6-14.6)
[2019-10-13 01:47] LABS: CHLORIDE 103 mEq/L (98-107)
[2019-10-13 02:03] LABS: MEAN PLATELET VOLUME 9.3 fl (7.4-10.4); PLATELET 103 x1000/uL (130-400)
[2019-10-13] MEDS ORDERED: SODIUM CHLORIDE 0.9% 1,000 ML IV ONE (02:15)
[2019-10-13] MEDS ORDERED: PIPERACILLIN/TAZOBACTAM 3.375GM/50ML PREMIX IV SCH (02:15)
[2019-10-13] MEDS ORDERED: VANCOMYCIN 1 G PREMIX 200 ML IV SCH (02:15)
[2019-10-13] MEDS ORDERED: AZITHROMYCIN 500 MG in DEXT 5% WATER 250 ML IV SCH (02:15)
[2019-10-13] MEDS ORDERED: MORPHINE SULFATE 2 MG/ML CPJ (NOT FOR IM USE) IV PRN (05:15)
[2019-10-13] MEDS ORDERED: IPRATROPIUM/ALBUTEROL 0.5-3(2.5)MG/3ML NEB HHN PRN (05:15)
[2019-10-13] MEDS ORDERED: DIPHENHYDRAMINE 50MG/ML VIAL IV PRN (05:15)
[2019-10-13] MEDS: METHYLPREDNISOLONE SOD SUCC 40 MG/ML VIAL IV SCH ×3 (05:45→22:33)
[2019-10-13] MEDS ORDERED: DEXTROSE 50% WATER 50ML SYRINGE IV PRN (05:45)
[2019-10-13] MEDS: BLOOD SUGAR DIAGNOSTIC STRIP TEST SCH ×4 (07:30→21:00)
[2019-10-13] MEDS: IPRATROPIUM/ALBUTEROL 0.5-3(2.5)MG/3ML NEB HHN SCH ×4 (08:00→20:16)
[2019-10-13] MEDS ORDERED: ENOXAPARIN 40MG/0.4ML SYR SUBCUT SCH (09:00)
[2019-10-13] MEDS: ENOXAPARIN 30MG/0.3ML SYR SUBCUT SCH ×2 (09:00→21:00)
[2019-10-13] MEDS: QUETIAPINE FUMARATE 50MG TABLET PO SCH (09:18)
[2019-10-13] MEDS: ASPIRIN 81MG EC TABLET PO SCH (09:18)
[2019-10-13] MEDS: AMLODIPINE 5MG TABLET PO SCH ×2 (09:18→22:40)
[2019-10-13] MEDS: INSULIN LISPRO 100 UNITS/ML SUBCUT SCH ×4 (09:19→21:00)
[2019-10-13 14:46] LABS: HEMATOCRIT. 32.8 % (42.0-52.0); HEMOGLOBIN. 11.4 g/dL (14.0-18.0); MEAN CORPUSCULAR HEMOGLOBIN 29.2 pg (28.0-32.0); MEAN PLATELET VOLUME 9.1 fl (7.4-10.4); PLATELET 88 x1000/uL (130-400); RED CELL DISTRIBUTION WIDTH 14.8 % (11.6-14.6)
[2019-10-13 14:58] LABS: CHLORIDE 107 mEq/L (98-107)
[2019-10-13 15:09] LABS: PLATELET ESTIMATE DECREASED
[2019-10-13 15:15] LABS: CREATINE KINASE 322 IU/L (39-308)
[2019-10-13] MEDS ORDERED: LORAZEPAM 2MG/ML CPJ IV NR (16:00)
[2019-10-13] MEDS ORDERED: POTASSIUM CHLORIDE 20MEQ TABLET SR PO NR (18:00)
[2019-10-13] MEDS: SODIUM CHLORIDE 0.9% 1,000 ML IV SCH (18:23)
[2019-10-14] VITALS (8 sets, daily range): BP systolic 118–149; BP diastolic 56–85
[2019-10-14] MEDS: IPRATROPIUM/ALBUTEROL 0.5-3(2.5)MG/3ML NEB HHN SCH ×4 (00:12→12:16)
[2019-10-14 00:19] LABS: *AMPHETAMINES SCREEN URINE NEGATIVE (NEGATIVE); *BARBITURATES SCREEN URINE NEGATIVE (NEGATIVE)
[2019-10-14 00:20] LABS: *BENZODIAZEPINES SCREEN URINE NEGATIVE (NEGATIVE); *COCAINE SCREEN URINE PRESUMTIVE POSITIVE (NEGATIVE); CANNABINOID URINE SCREEN NEGATIVE (NEGATIVE); METHADONE URINE SCREEN NEGATIVE (NEGATIVE); OPIATES URINE SCREEN PRESUMTIVE POSITIVE (NEGATIVE); PHENCYCLIDINE URINE SCREEN NEGATIVE (NEGATIVE)
[2019-10-14] MEDS: METHYLPREDNISOLONE SOD SUCC 40 MG/ML VIAL IV SCH (06:49)
[2019-10-14] MEDS: SODIUM CHLORIDE 0.9% 1,000 ML IV SCH (06:51)
[2019-10-14] MEDS: BLOOD SUGAR DIAGNOSTIC STRIP TEST SCH ×2 (07:30→12:30)
[2019-10-14] MEDS: ENOXAPARIN 30MG/0.3ML SYR SUBCUT SCH (09:00)
[2019-10-14] MEDS: QUETIAPINE FUMARATE 50MG TABLET PO SCH (09:16)
[2019-10-14] MEDS: ASPIRIN 81MG EC TABLET PO SCH (09:16)
[2019-10-14] MEDS: AMLODIPINE 5MG TABLET PO SCH (09:18)
[2019-10-14] MEDS: INSULIN LISPRO 100 UNITS/ML SUBCUT SCH ×2 (09:19→13:00)
[2019-10-14] MEDS ORDERED: FLUT1DIS2 INH (12:42)
[2019-10-14] MEDS ORDERED: QUET50TA PO (12:42)
[2019-10-14] MEDS ORDERED: P20 MT (12:42)
[2019-10-14] MEDS ORDERED: AMLO5TAB88 PO (12:42)
[2019-10-14] MEDS ORDERED: ALBU18HF2 IH (12:42)
[2019-10-14 12:57] LABS: BASOPHILS % 0.2 % (0.0-2.0); HEMATOCRIT. 32.4 % (42.0-52.0); LYMPHOCYTES % 10.8 % (20.0-50.0); MEAN CORPUSCULAR HEMOGLOBIN 28.6 pg (28.0-32.0); MEAN PLATELET VOLUME 10.5 fl (7.4-10.4); MONOCYTES % 3.1 % (2.0-8.0); NEUTROPHILS % 85.9 % (40.0-76.0); PLATELET 87 x1000/uL (130-400); RED BLOOD CELL COUNT 3.85 mill/uL (4.7-6.1); RED CELL DISTRIBUTION WIDTH 14.6 % (11.6-14.6)
[2019-10-14 13:52] LABS: CHLORIDE 106 mEq/L (98-107)
[2019-10-15] MEDS ORDERED: PREDNISONE 20MG TABLET PO SCH (09:00)
== END 2019-10-14 16:04 | disposition home or self-care (01) | DRG 52 ==
LOC: ER 00:29 → 5EST 02:16 → ENRESERV 02:47
PROVIDERS: ADMIT Internal Medicine; ATTEND Internal Medicine
PROC: 5A09357 Assistance with Respiratory Ventilation, Less than 24 Consecutive Hours, Continuous Positive Airway Pressure (ICD-10-PCS; principal; 2019-10-13)
DX: G92 Toxic encephalopathy (principal); J96.00 Acute respiratory failure, unspecified whether with hypoxia or hypercapnia; R65.11 Systemic inflammatory response syndrome (SIRS) of non-infectious origin with acute organ dysfunction; I50.33 Acute on chronic diastolic (congestive) heart failure; J18.9 Pneumonia, unspecified organism; E87.2 Acidosis; D69.6 Thrombocytopenia, unspecified; I11.0 Hypertensive heart disease with heart failure; J44.0 Chronic obstructive pulmonary disease with (acute) lower respiratory infection; D64.9 Anemia, unspecified; E11.9 Type 2 diabetes mellitus without complications; F99 Mental disorder, not otherwise specified; E66.9 Obesity, unspecified; G40.909 Epilepsy, unspecified, not intractable, without status epilepticus; Z87.891 Personal history of nicotine dependence; Z88.0 Allergy status to penicillin; Z79.84 Long term (current) use of oral hypoglycemic drugs; Z79.82 Long term (current) use of aspirin; Z79.899 Other long term (current) drug therapy; Z68.32 Body mass index [BMI] 32.0-32.9, adult; J44.1 Chronic obstructive pulmonary disease with (acute) exacerbation
CPT/HCPCS: 36415; 71045; 80048; 80053; 80305; 82550; 82962; 83036; 83605; 83880; 84484; 85025; 93005; 93306; 93970; 94640; 94660; 99291; J0456; J1200; J1650; J1815; J1940; J2060; J2270; J2543; J2920; J3370; J7030; J7060; Q0163

== ENCOUNTER 2020-02-16 14:24 | Inpatient (IN) | payer MEDICAID ==
[~2020-02-16] VITALS: Ht 172.7 cm; Wt 101.6 kg
[~2020-02-16 14:24] MED LIST changes: +P20 MT
[2020-02-16] MEDS ORDERED: METHYLPREDNISOLONE SOD SUCC 125 MG/2 ML VIAL IV STA (15:21)
[2020-02-16] MEDS ORDERED: IPRATROPIUM BROMIDE (0.02%) 0.5MG/2.5ML NEB HHN STA (15:21)
[2020-02-16] MEDS ORDERED: ALBUTEROL (0.083%) 2.5MG/3ML NEB HHN STA (15:21)
[2020-02-16] MEDS ORDERED: AZITHROMYCIN 500 MG in DEXT 5% WATER 250 ML IV ONE (15:30)
[2020-02-16] MEDS ORDERED: MAGNESIUM 2 G PREMIX 50 ML IV ONE (15:30)
[2020-02-16 15:39] LABS: CHLORIDE 100 mEq/L (98-107)
[2020-02-16 15:55] LABS: HEMATOCRIT. 38.6 % (42.0-52.0); HEMOGLOBIN. 12.8 g/dL (14.0-18.0); MEAN CORPUSCULAR HEMOGLOBIN 27.9 pg (28.0-32.0); MEAN CORPUSCULAR VOLUME 84.1 fL (80.0-94.0); MEAN PLATELET VOLUME 9.6 fl (7.4-10.4); PLATELET 133 x1000/uL (130-400); RED BLOOD CELL COUNT 4.58 mill/uL (4.7-6.1); RED CELL DISTRIBUTION WIDTH 15.3 % (11.6-14.6)
[2020-02-16] MEDS: ALBUTEROL 6.7GM HFA INHALER ORI ONE ×2 (16:00→18:52)
[2020-02-16 16:12] LABS: *AMPHETAMINES SCREEN URINE NEGATIVE (NEGATIVE)
[2020-02-16 16:13] LABS: *BARBITURATES SCREEN URINE NEGATIVE (NEGATIVE); *BENZODIAZEPINES SCREEN URINE NEGATIVE (NEGATIVE); *COCAINE SCREEN URINE PRESUMTIVE POSITIVE (NEGATIVE); METHADONE URINE SCREEN NEGATIVE (NEGATIVE); OPIATES URINE SCREEN NEGATIVE (NEGATIVE)
[2020-02-16 16:14] LABS: CANNABINOID URINE SCREEN NEGATIVE (NEGATIVE); PHENCYCLIDINE URINE SCREEN NEGATIVE (NEGATIVE)
[2020-02-16] MEDS ORDERED: SODIUM CHLORIDE 0.9% 1,000 ML IV ONE (16:33)
[2020-02-16 18:54] LABS: PLATELET ESTIMATE NORMAL
[2020-02-17] VITALS (7 sets, daily range): BP systolic 127–146; BP diastolic 79–94
[2020-02-17] MEDS ORDERED: CEFTRIAXONE 1 G PREMIX 50 ML IV SCH (03:00)
[2020-02-17] MEDS ORDERED: DEXTROSE 50% WATER 50ML SYRINGE IV PRN (03:00)
[2020-02-17] MEDS ORDERED: POTASSIUM CHLORIDE 20MEQ TABLET SR PO NR (03:00)
[2020-02-17] MEDS ORDERED: NON FORMULARY PATIENT HOME MED ORI PRN (03:15)
[2020-02-17] MEDS: ALBUTEROL 6.7GM HFA INHALER ORI SCH ×5 (04:32→20:28)
[2020-02-17] MEDS: BLOOD SUGAR DIAGNOSTIC STRIP TEST SCH ×4 (06:33→21:32)
[2020-02-17] MEDS: INSULIN LISPRO 100 UNITS/ML SUBCUT SCH ×4 (08:22→21:34)
[2020-02-17] MEDS: ASPIRIN 81MG TABLET PO SCH (08:23)
[2020-02-17] MEDS: ENOXAPARIN 30MG/0.3ML SYR SUBCUT SCH ×2 (08:23→21:32)
[2020-02-17] MEDS: AMLODIPINE 5MG TABLET PO SCH ×2 (08:33→21:31)
[2020-02-17] MEDS: FLUTICASONE/VILANTEROL 200-25 BLST.W.DEV ORI SCH (08:34)
[2020-02-17] MEDS ORDERED: DEXAMETHASONE 4MG TABLET PO SCH (09:00)
[2020-02-17 09:56] LABS: BASOPHILS % 0.7 % (0.0-2.0); EOSINOPHILS % 0.1 % (0.0-5.0); HEMATOCRIT. 35.7 % (42.0-52.0); LYMPHOCYTES % 9.1 % (20.0-50.0); MEAN CORPUSCULAR HEMOGLOBIN 28.3 pg (28.0-32.0); MEAN CORPUSCULAR VOLUME 84.3 fL (80.0-94.0); MEAN PLATELET VOLUME 9.3 fl (7.4-10.4); MONOCYTES % 5.8 % (2.0-8.0); NEUTROPHILS % 84.3 % (40.0-76.0); PLATELET 115 x1000/uL (130-400); RED BLOOD CELL COUNT 4.24 mill/uL (4.7-6.1); RED CELL DISTRIBUTION WIDTH 15.2 % (11.6-14.6)
[2020-02-17 10:03] LABS: CHLORIDE 107 mEq/L (98-107)
[2020-02-17] MEDS: AZITHROMYCIN 500 MG in DEXT 5% WATER 250 ML IV SCH (15:23)
[2020-02-17] MEDS ORDERED: INSULIN GLARGINE UD 100 UNITS/ML SYR SUBCUT NR (18:01)
[2020-02-17] MEDS: QUETIAPINE FUMARATE 50MG TABLET PO SCH (21:32)
[2020-02-17] MEDS: INSULIN GLARGINE UD 100 UNITS/ML SYR SUBCUT SCH (21:33)
[2020-02-18] VITALS: BP 143/83
[2020-02-18 04:00] VITALS: BP 148/86
[2020-02-18] MEDS: BLOOD SUGAR DIAGNOSTIC STRIP TEST SCH ×4 (06:09→20:57)
[2020-02-18] MEDS: ALBUTEROL 6.7GM HFA INHALER ORI SCH (08:00)
[2020-02-18] MEDS: ASPIRIN 81MG TABLET PO SCH (08:33)
[2020-02-18] MEDS: PREDNISONE 20MG TABLET PO SCH (08:33)
[2020-02-18] MEDS: AMLODIPINE 5MG TABLET PO SCH ×2 (08:34→21:29)
[2020-02-18] MEDS: ENOXAPARIN 30MG/0.3ML SYR SUBCUT SCH ×2 (08:34→21:28)
[2020-02-18] MEDS: INSULIN LISPRO 100 UNITS/ML SUBCUT SCH ×4 (08:37→21:25)
[2020-02-18] MEDS: FLUTICASONE/VILANTEROL 200-25 BLST.W.DEV ORI SCH (08:38)
[2020-02-18 12:00] VITALS: BP 153/93
[2020-02-18] MEDS: INSULIN GLARGINE UD 100 UNITS/ML SYR SUBCUT SCH ×2 (12:22→21:26)
[2020-02-18] MEDS: AZITHROMYCIN 500 MG in DEXT 5% WATER 250 ML IV SCH (16:42)
[2020-02-18] MEDS ORDERED: IPRATROPIUM/ALBUTEROL 0.5-3(2.5)MG/3ML NEB HHN PRN (17:45)
[2020-02-18 20:00] VITALS: BP 144/86
[2020-02-18] MEDS ORDERED: LORAZEPAM 2MG/ML CPJ IV PRN (20:15)
[2020-02-18] MEDS: QUETIAPINE FUMARATE 50MG TABLET PO SCH (21:29)
[2020-02-19] VITALS (7 sets, daily range): BP systolic 127–167; BP diastolic 74–106
[2020-02-19] MEDS: BLOOD SUGAR DIAGNOSTIC STRIP TEST SCH ×5 (06:20→20:36)
[2020-02-19] MEDS: INSULIN LISPRO 100 UNITS/ML SUBCUT SCH ×5 (08:50→21:20)
[2020-02-19] MEDS: ASPIRIN 81MG TABLET PO SCH (08:51)
[2020-02-19] MEDS: PREDNISONE 20MG TABLET PO SCH (08:51)
[2020-02-19] MEDS: AMLODIPINE 5MG TABLET PO SCH ×2 (08:51→20:01)
[2020-02-19] MEDS: ENOXAPARIN 30MG/0.3ML SYR SUBCUT SCH ×2 (08:51→20:00)
[2020-02-19] MEDS: INSULIN GLARGINE UD 100 UNITS/ML SYR SUBCUT SCH ×2 (09:38→21:23)
[2020-02-19] MEDS: FLUTICASONE/VILANTEROL 200-25 BLST.W.DEV ORI SCH (11:54)
[2020-02-19] MEDS: AZITHROMYCIN 500 MG in DEXT 5% WATER 250 ML IV SCH (17:18)
[2020-02-19] MEDS ORDERED: DEXTROSE 50% WATER 50ML SYRINGE IV PRN (18:15)
[2020-02-19] MEDS: QUETIAPINE FUMARATE 50MG TABLET PO SCH (20:01)
[2020-02-19] MEDS: IPRATROPIUM/ALBUTEROL 0.5-3(2.5)MG/3ML NEB HHN SCH (21:22)
[2020-02-20] VITALS: BP 138/82
[2020-02-20] MEDS: IPRATROPIUM/ALBUTEROL 0.5-3(2.5)MG/3ML NEB HHN SCH ×6 (01:11→16:54)
[2020-02-20 04:00] VITALS: BP 140/90
[2020-02-20] MEDS: BLOOD SUGAR DIAGNOSTIC STRIP TEST SCH ×7 (07:20→20:58)
[2020-02-20] MEDS: INSULIN LISPRO 100 UNITS/ML SUBCUT SCH ×3 (07:50→21:06)
[2020-02-20 08:00] VITALS: BP 135/80
[2020-02-20] MEDS: FLUTICASONE/VILANTEROL 200-25 BLST.W.DEV ORI SCH (09:53)
[2020-02-20] MEDS: AMLODIPINE 5MG TABLET PO SCH ×2 (09:55→21:05)
[2020-02-20] MEDS: ASPIRIN 81MG TABLET PO SCH (09:55)
[2020-02-20] MEDS: ENOXAPARIN 30MG/0.3ML SYR SUBCUT SCH ×2 (09:56→21:04)
[2020-02-20] MEDS: INSULIN GLARGINE UD 100 UNITS/ML SYR SUBCUT SCH ×2 (09:59→21:07)
[2020-02-20 16:00] VITALS: BP 147/99
[2020-02-20] MEDS: AZITHROMYCIN 500 MG in DEXT 5% WATER 250 ML IV SCH (16:47)
[2020-02-20 20:30] VITALS: BP 149/92
[2020-02-20] MEDS: QUETIAPINE FUMARATE 50MG TABLET PO SCH (21:05)
[2020-02-21] MEDS: IPRATROPIUM/ALBUTEROL 0.5-3(2.5)MG/3ML NEB HHN SCH ×7 (00:34→21:20)
[2020-02-21 04:49] VITALS: BP 108/71
[2020-02-21] MEDS: BLOOD SUGAR DIAGNOSTIC STRIP TEST SCH ×4 (07:20→21:00)
[2020-02-21] MEDS: INSULIN LISPRO 100 UNITS/ML SUBCUT SCH ×6 (07:47→21:00)
[2020-02-21 08:00] VITALS: BP 139/91
[2020-02-21] MEDS: FLUTICASONE/VILANTEROL 200-25 BLST.W.DEV ORI SCH (11:11)
[2020-02-21] MEDS: ENOXAPARIN 30MG/0.3ML SYR SUBCUT SCH ×2 (11:13→22:17)
[2020-02-21] MEDS: AMLODIPINE 5MG TABLET PO SCH ×2 (11:14→22:16)
[2020-02-21] MEDS: ASPIRIN 81MG TABLET PO SCH (11:15)
[2020-02-21] MEDS: GLIPIZIDE XL 2.5MG TABLET PO SCH (11:19)
[2020-02-21] MEDS: INSULIN GLARGINE UD 100 UNITS/ML SYR SUBCUT SCH ×2 (11:22→22:19)
[2020-02-21 12:00] VITALS: BP 124/71
[2020-02-21] MEDS ORDERED: QUET50TA PO (13:01)
[2020-02-21] MEDS ORDERED: FLUT1DIS2 INH (13:01)
[2020-02-21] MEDS ORDERED: METF-416 MT (13:01)
[2020-02-21] MEDS ORDERED: ALBU18HF2 IH (13:01)
[2020-02-21] MEDS ORDERED: ASPI-1160 PO (13:01)
[2020-02-21] MEDS ORDERED: AMLO5TAB88 PO (13:01)
[2020-02-21 16:00] VITALS: BP 153/89
[2020-02-21] MEDS: AZITHROMYCIN 500 MG in DEXT 5% WATER 250 ML IV SCH (17:30)
[2020-02-21 20:00] VITALS: BP 152/80
[2020-02-21] MEDS: QUETIAPINE FUMARATE 50MG TABLET PO SCH (22:16)
[2020-02-22] VITALS: BP 136/89
[2020-02-22 04:00] VITALS: BP 156/79
[2020-02-22] MEDS: BLOOD SUGAR DIAGNOSTIC STRIP TEST SCH ×4 (06:36→21:00)
[2020-02-22] MEDS: INSULIN LISPRO 100 UNITS/ML SUBCUT SCH ×4 (07:50→22:00)
[2020-02-22 08:00] VITALS: BP 138/82
[2020-02-22] MEDS: AMLODIPINE 5MG TABLET PO SCH ×2 (09:35→22:01)
[2020-02-22] MEDS: GLIPIZIDE XL 2.5MG TABLET PO SCH (09:35)
[2020-02-22] MEDS: ASPIRIN 81MG TABLET PO SCH (09:35)
[2020-02-22] MEDS: ENOXAPARIN 30MG/0.3ML SYR SUBCUT SCH ×2 (09:36→22:03)
[2020-02-22] MEDS: INSULIN GLARGINE UD 100 UNITS/ML SYR SUBCUT SCH ×2 (11:47→22:02)
[2020-02-22] MEDS: FLUTICASONE/VILANTEROL 200-25 BLST.W.DEV ORI SCH (11:48)
[2020-02-22] MEDS: IPRATROPIUM/ALBUTEROL 0.5-3(2.5)MG/3ML NEB HHN SCH ×3 (13:02→19:48)
[2020-02-22 16:00] VITALS: BP 130/82
[2020-02-22 20:00] VITALS: BP 115/74
[2020-02-22] MEDS: QUETIAPINE FUMARATE 50MG TABLET PO SCH (22:01)
[2020-02-23] VITALS: BP 108/68
[2020-02-23] MEDS: IPRATROPIUM/ALBUTEROL 0.5-3(2.5)MG/3ML NEB HHN SCH ×6 (01:15→19:45)
[2020-02-23 04:00] VITALS: BP 113/88
[2020-02-23] MEDS: BLOOD SUGAR DIAGNOSTIC STRIP TEST SCH ×4 (05:57→21:37)
[2020-02-23 08:31] VITALS: BP 112/69
[2020-02-23] MEDS: GLIPIZIDE XL 2.5MG TABLET PO SCH (09:07)
[2020-02-23] MEDS: ASPIRIN 81MG TABLET PO SCH (09:08)
[2020-02-23] MEDS: AMLODIPINE 5MG TABLET PO SCH ×2 (09:08→21:36)
[2020-02-23] MEDS: ENOXAPARIN 30MG/0.3ML SYR SUBCUT SCH ×2 (09:09→21:37)
[2020-02-23] MEDS: INSULIN LISPRO 100 UNITS/ML SUBCUT SCH ×4 (09:10→21:00)
[2020-02-23] MEDS: FLUTICASONE/VILANTEROL 200-25 BLST.W.DEV ORI SCH (09:13)
[2020-02-23] MEDS: INSULIN GLARGINE UD 100 UNITS/ML SYR SUBCUT SCH ×2 (10:04→22:31)
[2020-02-23 12:21] VITALS: BP 136/81
[2020-02-23 15:57] VITALS: BP 111/79
[2020-02-23 20:00] VITALS: BP 118/87
[2020-02-23] MEDS: QUETIAPINE FUMARATE 50MG TABLET PO SCH (21:36)
[2020-02-24] VITALS: BP 126/84
[2020-02-24 04:00] VITALS: BP 112/86
[2020-02-24] MEDS: BLOOD SUGAR DIAGNOSTIC STRIP TEST SCH ×4 (06:48→20:37)
[2020-02-24] MEDS: INSULIN LISPRO 100 UNITS/ML SUBCUT SCH ×4 (07:50→20:37)
[2020-02-24 08:00] VITALS: BP 133/86
[2020-02-24] MEDS: ASPIRIN 81MG TABLET PO SCH (09:17)
[2020-02-24] MEDS: AMLODIPINE 5MG TABLET PO SCH ×2 (09:17→21:05)
[2020-02-24] MEDS: ENOXAPARIN 30MG/0.3ML SYR SUBCUT SCH ×2 (09:17→21:05)
[2020-02-24] MEDS: GLIPIZIDE XL 2.5MG TABLET PO SCH (09:17)
[2020-02-24] MEDS: IPRATROPIUM/ALBUTEROL 0.5-3(2.5)MG/3ML NEB HHN SCH ×4 (09:28→20:36)
[2020-02-24] MEDS: INSULIN GLARGINE UD 100 UNITS/ML SYR SUBCUT SCH ×2 (09:56→21:06)
[2020-02-24 12:00] VITALS: BP 127/68
[2020-02-24 20:25] VITALS: BP 115/73
[2020-02-24] MEDS: QUETIAPINE FUMARATE 50MG TABLET PO SCH (21:05)
[2020-02-25] MEDS: IPRATROPIUM/ALBUTEROL 0.5-3(2.5)MG/3ML NEB HHN SCH ×7 (00:51→21:21)
[2020-02-25 04:00] VITALS: BP 126/80
[2020-02-25] MEDS: BLOOD SUGAR DIAGNOSTIC STRIP TEST SCH ×4 (06:27→21:36)
[2020-02-25] MEDS: INSULIN LISPRO 100 UNITS/ML SUBCUT SCH ×4 (07:10→21:36)
[2020-02-25 08:23] VITALS: BP 100/58
[2020-02-25] MEDS: ASPIRIN 81MG TABLET PO SCH (08:42)
[2020-02-25] MEDS: FLUTICASONE/VILANTEROL 200-25 BLST.W.DEV ORI SCH ×2 (08:42→09:54)
[2020-02-25] MEDS: AMLODIPINE 5MG TABLET PO SCH ×2 (08:42→20:57)
[2020-02-25] MEDS: GLIPIZIDE XL 2.5MG TABLET PO SCH (08:42)
[2020-02-25] MEDS: ENOXAPARIN 30MG/0.3ML SYR SUBCUT SCH ×3 (08:44→21:35)
[2020-02-25] MEDS: INSULIN GLARGINE UD 100 UNITS/ML SYR SUBCUT SCH ×2 (10:09→21:39)
[2020-02-25 12:20] VITALS: BP 132/72
[2020-02-25 16:00] VITALS: BP 110/72
[2020-02-25 20:09] VITALS: BP 103/66
[2020-02-25] MEDS: QUETIAPINE FUMARATE 50MG TABLET PO SCH (21:36)
[2020-02-26] MEDS: IPRATROPIUM/ALBUTEROL 0.5-3(2.5)MG/3ML NEB HHN SCH ×6 (00:22→21:36)
[2020-02-26 00:28] VITALS: BP 105/62
[2020-02-26 04:34] VITALS: BP 121/79
[2020-02-26] MEDS: BLOOD SUGAR DIAGNOSTIC STRIP TEST SCH ×4 (06:23→21:30)
[2020-02-26] MEDS: INSULIN LISPRO 100 UNITS/ML SUBCUT SCH ×4 (07:50→21:28)
[2020-02-26 08:30] VITALS: BP 126/88
[2020-02-26] MEDS: AMLODIPINE 5MG TABLET PO SCH ×2 (08:47→21:27)
[2020-02-26] MEDS: ASPIRIN 81MG TABLET PO SCH (08:47)
[2020-02-26] MEDS: FLUTICASONE/VILANTEROL 200-25 BLST.W.DEV ORI SCH (08:47)
[2020-02-26] MEDS: ENOXAPARIN 30MG/0.3ML SYR SUBCUT SCH ×2 (08:48→21:29)
[2020-02-26 12:15] VITALS: BP 116/80
[2020-02-26] MEDS: INSULIN GLARGINE UD 100 UNITS/ML SYR SUBCUT SCH (12:46)
[2020-02-26] MEDS ORDERED: TERBUTALINE SULFATE 1MG/ML VIAL SUBCUT SCH (14:30)
[2020-02-26] MEDS: PREDNISONE 20MG TABLET PO SCH (14:33)
[2020-02-26 20:00] VITALS: BP 143/83
[2020-02-26] MEDS: QUETIAPINE FUMARATE 50MG TABLET PO SCH (21:27)
[2020-02-26] MEDS ORDERED: INSULIN GLARGINE UD 100 UNITS/ML SYR SUBCUT SCH (22:00)
[2020-02-27] VITALS: BP 135/93
[2020-02-27] MEDS: IPRATROPIUM/ALBUTEROL 0.5-3(2.5)MG/3ML NEB HHN SCH ×7 (00:40→22:27)
[2020-02-27 04:00] VITALS: BP 133/76
[2020-02-27] MEDS ORDERED: MAGNESIUM/ALUMINUM HYDROXIDE/SIMETHICONE 30ML UDC PO PRN (05:45)
[2020-02-27] MEDS: BLOOD SUGAR DIAGNOSTIC STRIP TEST SCH ×4 (06:06→21:32)
[2020-02-27 06:13] LABS: HEMATOCRIT 36.4 % (42.0-52.0); HEMOGLOBIN 12.2 g/dL (14.0-18.0); MEAN CORPUSCULAR HEMOGLOBIN 28.1 pg (28.0-32.0); MEAN CORPUSCULAR VOLUME 83.6 fL (80.0-94.0); PLATELET 57 x1000/uL (130-400); RED BLOOD CELL COUNT 4.35 mill/uL (4.7-6.1); RED CELL DISTRIBUTION WIDTH 15.3 % (11.6-14.6)
[2020-02-27 06:20] LABS: CHLORIDE 105 mEq/L (98-107)
[2020-02-27] MEDS: PANTOPRAZOLE 40MG DR TABLET PO SCH (06:39)
[2020-02-27 08:00] VITALS: BP 145/81
[2020-02-27] MEDS: ASPIRIN 81MG TABLET PO SCH (08:25)
[2020-02-27] MEDS: AMLODIPINE 5MG TABLET PO SCH ×2 (08:25→21:31)
[2020-02-27] MEDS: PREDNISONE 20MG TABLET PO SCH (08:25)
[2020-02-27] MEDS: FLUTICASONE/VILANTEROL 200-25 BLST.W.DEV ORI SCH (08:26)
[2020-02-27] MEDS: ENOXAPARIN 30MG/0.3ML SYR SUBCUT SCH (08:37)
[2020-02-27] MEDS: INSULIN LISPRO 100 UNITS/ML SUBCUT SCH ×4 (08:39→21:33)
[2020-02-27 12:00] VITALS: BP 128/80
[2020-02-27 16:00] VITALS: BP 141/81
[2020-02-27] MEDS: QUETIAPINE FUMARATE 50MG TABLET PO SCH (21:31)
[2020-02-27] MEDS: INSULIN GLARGINE UD 100 UNITS/ML SYR SUBCUT SCH (21:32)
[2020-02-28] VITALS: BP 149/86
[2020-02-28] MEDS: IPRATROPIUM/ALBUTEROL 0.5-3(2.5)MG/3ML NEB HHN SCH ×6 (00:56→20:20)
[2020-02-28 04:00] VITALS: BP 116/61
[2020-02-28] MEDS: BLOOD SUGAR DIAGNOSTIC STRIP TEST SCH ×4 (06:17→21:28)
[2020-02-28] MEDS: PANTOPRAZOLE 40MG DR TABLET PO SCH (06:31)
[2020-02-28 08:00] VITALS: BP 105/65
[2020-02-28] MEDS: PREDNISONE 20MG TABLET PO SCH (08:55)
[2020-02-28] MEDS: AMLODIPINE 5MG TABLET PO SCH ×2 (08:55→21:26)
[2020-02-28] MEDS: ASPIRIN 81MG TABLET PO SCH (08:55)
[2020-02-28] MEDS: FLUTICASONE/VILANTEROL 200-25 BLST.W.DEV ORI SCH (08:58)
[2020-02-28] MEDS: INSULIN LISPRO 100 UNITS/ML SUBCUT SCH ×4 (09:00→21:28)
[2020-02-28] MEDS: INSULIN GLARGINE UD 100 UNITS/ML SYR SUBCUT SCH ×2 (11:16→22:23)
[2020-02-28 12:00] VITALS: BP 123/83
[2020-02-28 16:00] VITALS: BP 138/75
[2020-02-28 20:00] VITALS: BP 158/90
[2020-02-28] MEDS: QUETIAPINE FUMARATE 50MG TABLET PO SCH (21:26)
[2020-02-29] MEDS: INSULIN LISPRO 100 UNITS/ML SUBCUT SCH ×4 (06:33→22:00)
[2020-02-29] MEDS: BLOOD SUGAR DIAGNOSTIC STRIP TEST SCH ×4 (06:35→21:55)
[2020-02-29] MEDS: PANTOPRAZOLE 40MG DR TABLET PO SCH (06:41)
[2020-02-29] MEDS: IPRATROPIUM/ALBUTEROL 0.5-3(2.5)MG/3ML NEB HHN SCH ×4 (07:44→20:15)
[2020-02-29 08:31] VITALS: BP 119/80
[2020-02-29] MEDS: FLUTICASONE/VILANTEROL 200-25 BLST.W.DEV ORI SCH (09:00)
[2020-02-29] MEDS: PREDNISONE 20MG TABLET PO SCH (09:56)
[2020-02-29] MEDS: ASPIRIN 81MG TABLET PO SCH (09:56)
[2020-02-29] MEDS: AMLODIPINE 5MG TABLET PO SCH ×2 (09:56→21:59)
[2020-02-29] MEDS: INSULIN GLARGINE UD 100 UNITS/ML SYR SUBCUT SCH ×2 (09:58→22:00)
[2020-02-29 11:52] VITALS: BP 129/88
[2020-02-29 16:00] VITALS: BP 137/91
[2020-02-29 20:00] VITALS: BP 149/95
[2020-02-29] MEDS: QUETIAPINE FUMARATE 50MG TABLET PO SCH (22:04)
[2020-02-29] MEDS: ACETAMINOPHEN 325MG TABLET PO PRN (22:37)
[2020-03-01] VITALS: BP 146/101
[2020-03-01 04:00] VITALS: BP 124/78
[2020-03-01] MEDS: PANTOPRAZOLE 40MG DR TABLET PO SCH (06:35)
[2020-03-01] MEDS: BLOOD SUGAR DIAGNOSTIC STRIP TEST SCH ×4 (06:36→20:19)
[2020-03-01 08:07] VITALS: BP 149/66
[2020-03-01] MEDS: IPRATROPIUM/ALBUTEROL 0.5-3(2.5)MG/3ML NEB HHN SCH ×5 (08:10→20:21)
[2020-03-01] MEDS: AMLODIPINE 5MG TABLET PO SCH ×2 (08:13→20:16)
[2020-03-01] MEDS: ASPIRIN 81MG TABLET PO SCH (08:13)
[2020-03-01] MEDS: INSULIN LISPRO 100 UNITS/ML SUBCUT SCH ×4 (08:14→20:44)
[2020-03-01] MEDS: FLUTICASONE/VILANTEROL 200-25 BLST.W.DEV ORI SCH (08:14)
[2020-03-01] MEDS: INSULIN GLARGINE UD 100 UNITS/ML SYR SUBCUT SCH ×2 (10:02→22:14)
[2020-03-01 11:46] VITALS: BP 136/72
[2020-03-01 15:33] VITALS: BP 132/68
[2020-03-01 20:00] VITALS: BP 126/91
[2020-03-01] MEDS: QUETIAPINE FUMARATE 50MG TABLET PO SCH (20:19)
[2020-03-02] VITALS: BP 126/82
[2020-03-02] MEDS: IPRATROPIUM/ALBUTEROL 0.5-3(2.5)MG/3ML NEB HHN SCH ×6 (00:52→19:49)
[2020-03-02 04:00] VITALS: BP 118/71
[2020-03-02] MEDS: BLOOD SUGAR DIAGNOSTIC STRIP TEST SCH ×4 (06:34→19:55)
[2020-03-02 08:00] VITALS: BP 130/90
[2020-03-02] MEDS: AMLODIPINE 5MG TABLET PO SCH ×2 (08:14→19:55)
[2020-03-02] MEDS: ASPIRIN 81MG TABLET PO SCH (08:14)
[2020-03-02] MEDS: PANTOPRAZOLE 40MG DR TABLET PO SCH (08:14)
[2020-03-02] MEDS: FLUTICASONE/VILANTEROL 200-25 BLST.W.DEV ORI SCH (08:15)
[2020-03-02] MEDS: INSULIN LISPRO 100 UNITS/ML SUBCUT SCH ×4 (08:17→20:46)
[2020-03-02] MEDS: INSULIN GLARGINE UD 100 UNITS/ML SYR SUBCUT SCH (10:23)
[2020-03-02 12:00] VITALS: BP 125/78
[2020-03-02 16:00] VITALS: BP 128/89
[2020-03-02] MEDS: QUETIAPINE FUMARATE 50MG TABLET PO SCH (19:54)
[2020-03-02 20:00] VITALS: BP 142/99
[2020-03-03] VITALS: BP 146/88
[2020-03-03 04:00] VITALS: BP 132/74
[2020-03-03] MEDS: IPRATROPIUM/ALBUTEROL 0.5-3(2.5)MG/3ML NEB HHN SCH ×5 (04:00→22:09)
[2020-03-03] MEDS: PANTOPRAZOLE 40MG DR TABLET PO SCH (05:42)
[2020-03-03] MEDS: INSULIN LISPRO 100 UNITS/ML SUBCUT SCH ×4 (05:42→22:41)
[2020-03-03] MEDS: BLOOD SUGAR DIAGNOSTIC STRIP TEST SCH ×4 (05:42→21:00)
[2020-03-03 08:00] VITALS: BP 109/79
[2020-03-03] MEDS: AMLODIPINE 5MG TABLET PO SCH ×2 (08:30→22:42)
[2020-03-03] MEDS: FLUTICASONE/VILANTEROL 200-25 BLST.W.DEV ORI SCH (08:33)
[2020-03-03] MEDS: ASPIRIN 81MG TABLET PO SCH (08:33)
[2020-03-03] MEDS: ACETAMINOPHEN 325MG TABLET PO PRN (08:38)
[2020-03-03 12:00] VITALS: BP 125/83
[2020-03-03 16:00] VITALS: BP_SYST 107; BP_SYST 121; BP_DIAS 54; BP_DIAS 88
[2020-03-03 20:00] VITALS: BP 132/95
[2020-03-03] MEDS: QUETIAPINE FUMARATE 50MG TABLET PO SCH (22:39)
[2020-03-04] VITALS: BP 128/45
[2020-03-04] MEDS: IPRATROPIUM/ALBUTEROL 0.5-3(2.5)MG/3ML NEB HHN SCH ×4 (00:45→12:20)
[2020-03-04 04:00] VITALS: BP 128/95
[2020-03-04] MEDS: BLOOD SUGAR DIAGNOSTIC STRIP TEST SCH ×2 (06:21→12:34)
[2020-03-04] MEDS: INSULIN LISPRO 100 UNITS/ML SUBCUT SCH ×2 (07:36→12:34)
[2020-03-04 08:00] VITALS: BP 107/69
[2020-03-04] MEDS: ASPIRIN 81MG TABLET PO SCH (09:00)
[2020-03-04] MEDS: AMLODIPINE 5MG TABLET PO SCH (09:00)
[2020-03-04] MEDS: FLUTICASONE/VILANTEROL 200-25 BLST.W.DEV ORI SCH (09:00)
[2020-03-04] MEDS: PANTOPRAZOLE 40MG DR TABLET PO SCH (09:00)
[2020-03-04 11:23] VITALS: BP 140/88
[2020-03-04 12:47] VITALS: BP 140/88
== END 2020-03-04 14:05 | disposition home or self-care (01) | DRG 720 ==
LOC: ER 14:24 → 7WST 16:37 → EDBEDREQ 16:40 → ENRESERV 22:10 → 7WST 02-17 17:55 → 6WST 02-17 23:20
PROVIDERS: ADMIT Internal Medicine; ATTEND Internal Medicine
DX: A41.9 Sepsis, unspecified organism (principal); J96.01 Acute respiratory failure with hypoxia; I11.0 Hypertensive heart disease with heart failure; I50.42 Chronic combined systolic (congestive) and diastolic (congestive) heart failure; J68.0 Bronchitis and pneumonitis due to chemicals, gases, fumes and vapors; D64.9 Anemia, unspecified; E11.9 Type 2 diabetes mellitus without complications; E87.6 Hypokalemia; G40.909 Epilepsy, unspecified, not intractable, without status epilepticus; Z20.828 Contact with and (suspected) exposure to other viral communicable diseases; F14.10 Cocaine abuse, uncomplicated; J44.1 Chronic obstructive pulmonary disease with (acute) exacerbation; D72.810 Lymphocytopenia; R74.0 Nonspecific elevation of levels of transaminase and lactic acid dehydrogenase [LDH]; J98.11 Atelectasis; F10.10 Alcohol abuse, uncomplicated; Y90.9 Presence of alcohol in blood, level not specified; F99 Mental disorder, not otherwise specified; F15.10 Other stimulant abuse, uncomplicated; Z88.0 Allergy status to penicillin; Z79.82 Long term (current) use of aspirin; Z79.899 Other long term (current) drug therapy; Z71.51 Drug abuse counseling and surveillance of drug abuser; Z79.84 Long term (current) use of oral hypoglycemic drugs; Z87.891 Personal history of nicotine dependence
CPT/HCPCS: 36415; 71045; 80048; 80053; 80305; 82962; 83036; 83605; 83880; 84484; 85025; 85027; 93005; 94640; 96365; 97116; 97162; 97535; 99291; J0456; J1650; J1815; J2060; J2930; J3105; J3475; J7030; J7060; J7512; J8540; U0003-CS

== ENCOUNTER 2020-03-09 20:25 | Inpatient (IN) | payer MEDICAID ==
[~2020-03-09] VITALS: Ht 177.8 cm; Wt 104.5 kg
[~2020-03-09 20:25] MED LIST changes: -ALBU25PO2 HHN; +ASPI-1160 PO; +METF-416 MT; -P20 MT
[2020-03-09] MEDS ORDERED: METHYLPREDNISOLONE SOD SUCC 125 MG/2 ML VIAL IV STA (21:56)
[2020-03-09] MEDS ORDERED: NITROGLYCERIN 0.4MG TABLET SL SL PRN (22:00)
[2020-03-09] MEDS ORDERED: ASPIRIN 325MG EC TABLET PO ONE (22:00)
[2020-03-09] MEDS ORDERED: MORPHINE SULFATE 4 MG/ML CPJ (NOT FOR IM USE) IV STA (22:18)
[2020-03-09 23:05] LABS: BASOPHILS % 0.4 % (0.0-2.0); EOSINOPHILS % 1.8 % (0.0-5.0); HEMATOCRIT. 37.8 % (42.0-52.0); HEMOGLOBIN. 12.7 g/dL (14.0-18.0); LYMPHOCYTES % 23.9 % (20.0-50.0); MEAN CORPUSCULAR HEMOGLOBIN 27.6 pg (28.0-32.0); MEAN PLATELET VOLUME 8.8 fl (7.4-10.4); MONOCYTES % 11.7 % (2.0-8.0); NEUTROPHILS % 62.2 % (40.0-76.0); PLATELET 141 x1000/uL (130-400); RED BLOOD CELL COUNT 4.61 mill/uL (4.7-6.1); RED CELL DISTRIBUTION WIDTH 14.9 % (11.6-14.6)
[2020-03-09 23:09] LABS: CHLORIDE 109 mEq/L (98-107)
[2020-03-10] MEDS ORDERED: SODIUM CHLORIDE 0.9% 1,000 ML IV ONE (00:54)
[2020-03-10] MEDS ORDERED: CEFTRIAXONE 1 G PREMIX 50 ML IV ONE (01:45)
[2020-03-10] MEDS ORDERED: SODIUM CHLORIDE 0.9% 1000ML BAG (SEPSIS BOLUS) IV ONE (01:45)
[2020-03-10] MEDS ORDERED: AZITHROMYCIN 500 MG in DEXT 5% WATER 250 ML IV ONE (01:45)
[2020-03-10] MEDS ORDERED: QUETIAPINE FUMARATE 50MG TABLET PO SCH ×2 (02:00→11:00)
[2020-03-10] MEDS ORDERED: IOHEXOL-350 100 ML BOTTLE ONE (02:41)
[2020-03-10 05:00] VITALS: BP 138/89
[2020-03-10] MEDS ORDERED: HYDROCODONE/APAP 7.5/325MG 1 TAB TABLET PO PRN (05:00)
[2020-03-10] MEDS ORDERED: DOCUSATE SODIUM 100MG CAPSULE PO PRN (05:00)
[2020-03-10] MEDS ORDERED: ACETAMINOPHEN 325MG TABLET PO PRN (05:00)
[2020-03-10] MEDS ORDERED: CLONIDINE 0.1MG TABLET PO PRN (05:00)
[2020-03-10] MEDS ORDERED: ONDANSETRON HCL 4MG/2ML INJ IV PRN (05:00)
[2020-03-10] MEDS ORDERED: MAGNESIUM/ALUMINUM HYDROXIDE/SIMETHICONE 30ML UDC PO PRN (05:00)
[2020-03-10] MEDS ORDERED: GUAIFENESIN 200MG/10ML SUGAR FREE UDC PO PRN (05:00)
[2020-03-10] MEDS ORDERED: MORPHINE SULFATE 2 MG/ML CPJ (NOT FOR IM USE) IV PRN (05:00)
[2020-03-10] MEDS ORDERED: DEXTROSE 50% WATER 50ML SYRINGE IV PRN (05:15)
[2020-03-10] MEDS: BLOOD SUGAR DIAGNOSTIC STRIP TEST SCH ×4 (06:29→20:41)
[2020-03-10] MEDS: AMLODIPINE 10MG TABLET PO SCH (06:30)
[2020-03-10 08:00] VITALS: BP 116/70
[2020-03-10] MEDS: INSULIN LISPRO 100 UNITS/ML SUBCUT SCH ×4 (08:28→20:41)
[2020-03-10] MEDS: LISINOPRIL 20MG TABLET PO SCH (08:29)
[2020-03-10] MEDS: LEVOFLOXACIN 500MG PREMIX 100 ML IV SCH (08:30)
[2020-03-10] MEDS ORDERED: ENOXAPARIN 30MG/0.3ML SYR SUBCUT SCH (09:00)
[2020-03-10 11:24] LABS: CHLORIDE 108 mEq/L (98-107)
[2020-03-10 12:00] VITALS: BP 119/68
[2020-03-10] MEDS: PREDNISONE 20MG TABLET PO SCH (12:44)
[2020-03-10 16:00] VITALS: BP 91/61
[2020-03-10] MEDS: MONTELUKAST SODIUM 10MG TABLET PO SCH (17:00)
[2020-03-10] MEDS: METFORMIN HCL 500MG TABLET PO SCH (18:04)
[2020-03-10 20:00] VITALS: BP 132/82
[2020-03-10] MEDS: FAMOTIDINE 20MG TABLET PO SCH (20:40)
[2020-03-10] MEDS: QUETIAPINE FUMARATE 50MG TABLET PO SCH (20:40)
[2020-03-11] VITALS: BP 132/84
[2020-03-11 02:20] LABS: *AMPHETAMINES SCREEN URINE NEGATIVE (NEGATIVE); *BARBITURATES SCREEN URINE NEGATIVE (NEGATIVE); *BENZODIAZEPINES SCREEN URINE NEGATIVE (NEGATIVE); *COCAINE SCREEN URINE PRESUMTIVE POSITIVE (NEGATIVE); METHADONE URINE SCREEN NEGATIVE (NEGATIVE); OPIATES URINE SCREEN PRESUMTIVE POSITIVE (NEGATIVE)
[2020-03-11 02:21] LABS: CANNABINOID URINE SCREEN NEGATIVE (NEGATIVE); PHENCYCLIDINE URINE SCREEN NEGATIVE (NEGATIVE)
[2020-03-11 04:00] VITALS: BP 125/81
[2020-03-11] MEDS: BLOOD SUGAR DIAGNOSTIC STRIP TEST SCH ×4 (08:08→20:59)
[2020-03-11] MEDS: INSULIN LISPRO 100 UNITS/ML SUBCUT SCH ×4 (08:10→21:00)
[2020-03-11] MEDS: METFORMIN HCL 500MG TABLET PO SCH ×2 (08:10→17:52)
[2020-03-11] MEDS: ENOXAPARIN 40MG/0.4ML SYR SUBCUT SCH (08:10)
[2020-03-11] MEDS: FAMOTIDINE 20MG TABLET PO SCH ×2 (08:11→20:59)
[2020-03-11] MEDS: AMLODIPINE 10MG TABLET PO SCH (08:11)
[2020-03-11] MEDS: LEVOFLOXACIN 500MG PREMIX 100 ML IV SCH (08:11)
[2020-03-11] MEDS: LISINOPRIL 20MG TABLET PO SCH (08:11)
[2020-03-11] MEDS: PREDNISONE 20MG TABLET PO SCH (08:11)
[2020-03-11 12:00] VITALS: BP 155/84
[2020-03-11 16:00] VITALS: BP 128/88
[2020-03-11] MEDS: MONTELUKAST SODIUM 10MG TABLET PO SCH (17:52)
[2020-03-11 20:00] VITALS: BP 148/88
[2020-03-11] MEDS: QUETIAPINE FUMARATE 50MG TABLET PO SCH (20:59)
[2020-03-12 04:00] VITALS: BP 143/102
[2020-03-12 07:18] LABS: CHLORIDE 111 mEq/L (98-107)
[2020-03-12] MEDS: BLOOD SUGAR DIAGNOSTIC STRIP TEST SCH ×2 (07:36→12:20)
[2020-03-12 07:37] LABS: LDL CHOLESTEROL 112 mg/dL (5-100)
[2020-03-12 07:39] LABS: HDL CHOLESTEROL 34 mg/dL (40-59)
[2020-03-12 08:00] VITALS: BP 126/87
[2020-03-12] MEDS: IPRATROPIUM/ALBUTEROL 0.5-3(2.5)MG/3ML NEB HHN SCH ×2 (08:11→11:29)
[2020-03-12 08:42] LABS: BASOPHILS % 0.3 % (0.0-2.0); EOSINOPHILS % 0.6 % (0.0-5.0); HEMATOCRIT. 31.3 % (42.0-52.0); HEMOGLOBIN. 10.5 g/dL (14.0-18.0); LYMPHOCYTES % 21.6 % (20.0-50.0); MEAN CORPUSCULAR HEMOGLOBIN 27.8 pg (28.0-32.0); MEAN CORPUSCULAR VOLUME 82.7 fL (80.0-94.0); MEAN PLATELET VOLUME 9.9 fl (7.4-10.4); MONOCYTES % 8.9 % (2.0-8.0); NEUTROPHILS % 68.6 % (40.0-76.0); PLATELET 118 x1000/uL (130-400); RED BLOOD CELL COUNT 3.79 mill/uL (4.7-6.1); RED CELL DISTRIBUTION WIDTH 15.2 % (11.6-14.6)
[2020-03-12] MEDS: AMLODIPINE 10MG TABLET PO SCH (08:49)
[2020-03-12] MEDS: LISINOPRIL 20MG TABLET PO SCH (08:49)
[2020-03-12] MEDS: ENOXAPARIN 40MG/0.4ML SYR SUBCUT SCH ×2 (08:49→09:00)
[2020-03-12] MEDS: METFORMIN HCL 500MG TABLET PO SCH (08:49)
[2020-03-12] MEDS: PREDNISONE 20MG TABLET PO SCH (08:49)
[2020-03-12] MEDS: INSULIN LISPRO 100 UNITS/ML SUBCUT SCH ×2 (08:50→12:50)
[2020-03-12] MEDS: FAMOTIDINE 20MG TABLET PO SCH (08:52)
[2020-03-12] MEDS: LEVOFLOXACIN 500MG PREMIX 100 ML IV SCH ×2 (09:00→11:05)
[2020-03-12 12:00] VITALS: BP 153/97
[2020-03-12 12:31] VITALS: BP_SYST 153; BP_SYST 157; BP_DIAS 90; BP_DIAS 97
[2020-03-12] MEDS ORDERED: ATORVASTATIN CALCIUM 20MG TABLET PO SCH (21:00)
[2020-03-13] MEDS ORDERED: LEVOFLOXACIN 500MG TABLET PO SCH (11:00)
== END 2020-03-12 15:06 | disposition home or self-care (01) | DRG 816 ==
LOC: ER 20:25 → 7WST 03-10 01:38 → EDBEDREQ 03-10 01:40 → EDBEDREQTM 03-10 01:40 → ENRESERV 03-10 03:38 → 6WST 03-11 10:08
PROVIDERS: ADMIT Hospitalist; ATTEND Hospitalist
DX: T40.5X1A Poisoning by cocaine, accidental (unintentional), initial encounter (principal); J96.00 Acute respiratory failure, unspecified whether with hypoxia or hypercapnia; J68.0 Bronchitis and pneumonitis due to chemicals, gases, fumes and vapors; I50.9 Heart failure, unspecified; E87.6 Hypokalemia; G40.909 Epilepsy, unspecified, not intractable, without status epilepticus; R74.0 Nonspecific elevation of levels of transaminase and lactic acid dehydrogenase [LDH]; R07.89 Other chest pain; Z60.2 Problems related to living alone; F99 Mental disorder, not otherwise specified; I11.0 Hypertensive heart disease with heart failure; Z20.828 Contact with and (suspected) exposure to other viral communicable diseases; E11.9 Type 2 diabetes mellitus without complications; Y92.89 Other specified places as the place of occurrence of the external cause; Z79.84 Long term (current) use of oral hypoglycemic drugs; J45.901 Unspecified asthma with (acute) exacerbation; Z87.891 Personal history of nicotine dependence; Z88.0 Allergy status to penicillin; Z79.82 Long term (current) use of aspirin; Z79.899 Other long term (current) drug therapy
CPT/HCPCS: 36415; 71045; 71275; 80048; 80053; 80061; 80305; 82962; 83036; 83605; 83880; 84484; 85025; 85379; 87635; 93005; 93306; 93970; 94640; 99285; J0456; J0696; J1650; J1815; J1956; J2270; J2405; J2930; J7030; J7060; J7512; Q9967

== ENCOUNTER 2020-05-30 20:34 | Emergency (ER) | payer MEDICAID ==
[~2020-05-30] VITALS: Ht 175.3 cm; Wt 99.0 kg
[2020-05-30] MEDS ORDERED: NITROGLYCERIN OINT 1GM/INCH UDPKT TD ONE (21:30)
[2020-05-30] MEDS ORDERED: ASPIRIN 81MG TABLET PO ONE (21:30)
[2020-05-30] MEDS ORDERED: FUROSEMIDE 40MG/4ML VIAL IV ONE (21:30)
[2020-05-30] MEDS ORDERED: ALBUTEROL (0.083%) 2.5MG/3ML NEB HHN STA (22:58)
[2020-05-30] MEDS ORDERED: METHYLPREDNISOLONE SOD SUCC 125 MG/2 ML VIAL IV STA (22:58)
[2020-05-30] MEDS ORDERED: IPRATROPIUM BROMIDE (0.02%) 0.5MG/2.5ML NEB HHN STA (22:58)
[2020-05-30] MEDS ORDERED: MORPHINE SULFATE 4 MG/ML CPJ (NOT FOR IM USE) IV ONE (23:15)
[2020-05-31 00:40] LABS: BASOPHILS % 0.2 % (0.0-2.0); EOSINOPHILS % 0.6 % (0.0-5.0); HEMATOCRIT. 35.1 % (42.0-52.0); HEMOGLOBIN. 11.5 g/dL (14.0-18.0); LYMPHOCYTES % 9.4 % (20.0-50.0); MEAN CORPUSCULAR HEMOGLOBIN 26.8 pg (28.0-32.0); MEAN CORPUSCULAR VOLUME 81.6 fL (80.0-94.0); MEAN PLATELET VOLUME 10.3 fl (7.4-10.4); MONOCYTES % 8.8 % (2.0-8.0); PLATELET 82 x1000/uL (130-400); RED CELL DISTRIBUTION WIDTH 16.3 % (11.6-14.6)
[2020-05-31 00:46] LABS: CHLORIDE 105 mEq/L (98-107)
[2020-05-31 03:30] VITALS: BP 140/92
[2020-05-31] MEDS ORDERED: DEXTROSE 50% WATER 50ML SYRINGE IV PRN (06:00)
[2020-05-31] MEDS ORDERED: INSULIN LISPRO (MEDIUM DOSE) 100 UNITS/ML SUBCUT SCH (08:20)
[2020-05-31] MEDS ORDERED: BLOOD SUGAR DIAGNOSTIC STRIP TEST SCH (09:00)
== END 2020-05-31 06:36 | disposition left against medical advice (07) ==
LOC: ER 20:34 → EDBEDREQ 05-31 01:21 → EDBEDREQTM 05-31 01:21 → EDBEDREQDT 05-31 01:21 → ER 05-31 06:36 → ENRESERV 05-31 07:33 → CANRESERV 05-31 07:33 → CANBEDREQ 05-31 17:43
DX: J18.9 Pneumonia, unspecified organism (principal); I11.0 Hypertensive heart disease with heart failure; I50.9 Heart failure, unspecified; E11.9 Type 2 diabetes mellitus without complications; J44.9 Chronic obstructive pulmonary disease, unspecified; Z03.818 Encounter for observation for suspected exposure to other biological agents ruled out; Z79.82 Long term (current) use of aspirin; Z88.0 Allergy status to penicillin
CPT/HCPCS: 36415; 71045; 80053; 82962; 83605; 83880; 84484; 85025; 93005; 94640; 96374; 96375; 99285; C9803; J1940; J2270; J2930; U0003; Z7610

== ENCOUNTER 2020-08-28 20:50 | Emergency (ER) | payer MEDICAID ==
[~2020-08-28] VITALS: Ht 177.8 cm; Wt 90.0 kg
[2020-08-28] MEDS ORDERED: PREDNISONE 20MG TABLET PO ONE (22:45)
[2020-08-29 00:24] VITALS: BP 145/98
[2020-09-07] MEDS ORDERED: GLIP5TAB12 MT (16:37)
[2020-09-07] MEDS ORDERED: FLUT1DIS2 INH (16:37)
[2020-09-07] MEDS ORDERED: ALBU18HF2 IH (16:37)
[2020-09-07] MEDS ORDERED: METF-416 MT (16:37)
[2020-09-07] MEDS ORDERED: AMLO5TAB88 PO (16:37)
[2020-09-07] MEDS ORDERED: P20 MT (16:37)
== END 2020-08-29 00:27 | disposition home or self-care (01) ==
LOC: ER 20:50
DX: I50.9 Heart failure, unspecified (principal); J44.1 Chronic obstructive pulmonary disease with (acute) exacerbation; F14.10 Cocaine abuse, uncomplicated; F15.10 Other stimulant abuse, uncomplicated; Z79.899 Other long term (current) drug therapy; Z79.82 Long term (current) use of aspirin; Z88.0 Allergy status to penicillin
CPT/HCPCS: 71045; 93005; 99283; J7512; Z7610

== ENCOUNTER 2020-11-22 18:31 | Inpatient (IN) | payer OTHER ==
[~2020-11-22] VITALS: Ht 172.7 cm; Wt 93.4 kg
[~2020-11-22 18:31] MED LIST changes: +GLIP5TAB12 MT; +P20 MT
[2020-11-22] MEDS ORDERED: ALBUTEROL (0.083%) 2.5MG/3ML NEB HHN STA ×2 (19:29→21:35)
[2020-11-22] MEDS ORDERED: PREDNISONE 20MG TABLET PO STA (19:29)
[2020-11-22] MEDS ORDERED: IPRATROPIUM BROMIDE (0.02%) 0.5MG/2.5ML NEB HHN STA ×2 (19:29→21:35)
[2020-11-22 20:07] LABS: HEMATOCRIT. 34.3 % (42.0-52.0); HEMOGLOBIN. 11.5 g/dL (14.0-18.0); MEAN CORPUSCULAR HEMOGLOBIN 26.3 pg (28.0-32.0); MEAN CORPUSCULAR VOLUME 78.4 fL (80.0-94.0); MEAN PLATELET VOLUME 9.4 fl (7.4-10.4); PLATELET 83 x1000/uL (130-400); RED BLOOD CELL COUNT 4.37 mill/uL (4.7-6.1); RED CELL DISTRIBUTION WIDTH 16.8 % (11.6-14.6)
[2020-11-22 20:16] LABS: CHLORIDE 109 mEq/L (98-107)
[2020-11-22 20:31] LABS: PLATELET ESTIMATE DECREASED
[2020-11-23] MEDS ORDERED: ONDANSETRON HCL 4MG/2ML INJ IV PRN (07:45)
[2020-11-23] MEDS ORDERED: MAGNESIUM/ALUMINUM HYDROXIDE/SIMETHICONE 30ML UDC PO PRN (07:45)
[2020-11-23] MEDS ORDERED: ACETAMINOPHEN 325MG TABLET PO PRN (07:45)
[2020-11-23] MEDS ORDERED: CLONIDINE 0.1MG TABLET PO PRN (07:45)
[2020-11-23] MEDS ORDERED: DOCUSATE SODIUM 100MG CAPSULE PO PRN (07:45)
[2020-11-23] MEDS ORDERED: HYDROCODONE/ACETAMINOPHEN 5/325MG TABLET PO PRN (07:45)
[2020-11-23] MEDS: IPRATROPIUM/ALBUTEROL 0.5-3(2.5)MG/3ML NEB NEB PRN ×2 (08:24→14:25)
[2020-11-23 09:40] VITALS: BP 145/75
[2020-11-23 10:10] VITALS: BP 145/75
[2020-11-23 11:30] LABS: HEMATOCRIT. 35.6 % (42.0-52.0); HEMOGLOBIN. 11.3 g/dL (14.0-18.0); MEAN CORPUSCULAR HEMOGLOBIN 25.3 pg (28.0-32.0); MEAN CORPUSCULAR VOLUME 79.5 fL (80.0-94.0); RED BLOOD CELL COUNT 4.48 mill/uL (4.7-6.1); RED CELL DISTRIBUTION WIDTH 17.2 % (11.6-14.6)
[2020-11-23 11:49] LABS: PLATELET ESTIMATE NORMAL
[2020-11-23 12:00] VITALS: BP 163/75
[2020-11-23] MEDS: ENOXAPARIN 40MG/0.4ML SYR SUBCUT SCH (12:30)
[2020-11-23] MEDS: OMEPRAZOLE 20MG CAPSULE EXTENDED RELEASE PO SCH (13:15)
[2020-11-23] MEDS ORDERED: METHYLPREDNISOLONE SOD SUCC 125 MG/2 ML VIAL IV SCH (14:00)
[2020-11-23 16:00] VITALS: BP 159/95
[2020-11-23] MEDS ORDERED: FUROSEMIDE 40MG/4ML VIAL IVP NR (17:45)
[2020-11-23] MEDS ORDERED: DEXTROSE 50% WATER 50ML SYRINGE IV PRN ×2 (19:00→21:15)
[2020-11-23] MEDS ORDERED: BLOOD SUGAR DIAGNOSTIC STRIP TEST SCH (21:00)
[2020-11-23] MEDS ORDERED: INSULIN LISPRO 100 UNITS/ML SUBCUT SCH ×2 (21:00)
[2020-11-23] MEDS: IPRATROPIUM/ALBUTEROL 0.5-3(2.5)MG/3ML NEB HHN SCH (21:14)
[2020-11-23] MEDS: METHYLPREDNISOLONE SOD SUCC 40 MG/ML VIAL IV SCH (21:26)
[2020-11-23] MEDS: QUETIAPINE FUMARATE 50MG TABLET PO SCH (21:28)
[2020-11-23] MEDS: INSULIN GLARGINE UD 100 UNITS/ML SYR SUBCUT SCH (22:34)
[2020-11-24] VITALS (7 sets, daily range): BP systolic 119–132; BP diastolic 70–95
[2020-11-24] MEDS: IPRATROPIUM/ALBUTEROL 0.5-3(2.5)MG/3ML NEB HHN SCH ×4 (02:58→20:26)
[2020-11-24] MEDS: METHYLPREDNISOLONE SOD SUCC 40 MG/ML VIAL IV SCH ×3 (05:22→21:59)
[2020-11-24] MEDS: OMEPRAZOLE 20MG CAPSULE EXTENDED RELEASE PO SCH (06:13)
[2020-11-24] MEDS: BLOOD SUGAR DIAGNOSTIC STRIP TEST SCH ×4 (06:18→21:19)
[2020-11-24] MEDS: INSULIN LISPRO 100 UNITS/ML SUBCUT SCH ×4 (06:54→22:00)
[2020-11-24] MEDS ORDERED: BLOOD SUGAR DIAGNOSTIC STRIP TEST SCH (07:20)
[2020-11-24 07:27] LABS: CHLORIDE 105 mEq/L (98-107)
[2020-11-24 07:49] LABS: HEMATOCRIT. 35.2 % (42.0-52.0); HEMOGLOBIN. 11.4 g/dL (14.0-18.0); MEAN CORPUSCULAR HEMOGLOBIN 25.4 pg (28.0-32.0); MEAN CORPUSCULAR VOLUME 78.5 fL (80.0-94.0); MEAN PLATELET VOLUME 10.9 fl (7.4-10.4); PLATELET 96 x1000/uL (130-400); RED BLOOD CELL COUNT 4.48 mill/uL (4.7-6.1); RED CELL DISTRIBUTION WIDTH 16.8 % (11.6-14.6)
[2020-11-24] MEDS ORDERED: INSULIN LISPRO 100 UNITS/ML SUBCUT SCH (07:50)
[2020-11-24] MEDS: METFORMIN HCL 500MG TABLET PO SCH ×2 (08:47→17:35)
[2020-11-24] MEDS: ENOXAPARIN 40MG/0.4ML SYR SUBCUT SCH (09:00)
[2020-11-24] MEDS: INSULIN GLARGINE UD 100 UNITS/ML SYR SUBCUT SCH ×2 (10:07→22:00)
[2020-11-24] MEDS ORDERED: INSULIN LISPRO 100 UNITS/ML SUBCUT NR (12:00)
[2020-11-24 21:37] LABS: PLATELET ESTIMATE DECREASED
[2020-11-24] MEDS: QUETIAPINE FUMARATE 50MG TABLET PO SCH (21:57)
[2020-11-25] VITALS: BP 151/91
[2020-11-25] MEDS: IPRATROPIUM/ALBUTEROL 0.5-3(2.5)MG/3ML NEB HHN SCH ×4 (01:03→20:08)
[2020-11-25 04:00] VITALS: BP 132/94
[2020-11-25] MEDS: METHYLPREDNISOLONE SOD SUCC 40 MG/ML VIAL IV SCH (06:13)
[2020-11-25] MEDS: OMEPRAZOLE 20MG CAPSULE EXTENDED RELEASE PO SCH (06:23)
[2020-11-25] MEDS: BLOOD SUGAR DIAGNOSTIC STRIP TEST SCH ×4 (06:23→21:22)
[2020-11-25 06:52] LABS: HEMATOCRIT. 34.6 % (42.0-52.0); HEMOGLOBIN. 11.3 g/dL (14.0-18.0); MEAN CORPUSCULAR HEMOGLOBIN 25.4 pg (28.0-32.0); MEAN CORPUSCULAR VOLUME 78.2 fL (80.0-94.0); MEAN PLATELET VOLUME 11.1 fl (7.4-10.4); PLATELET 96 x1000/uL (130-400); RED BLOOD CELL COUNT 4.43 mill/uL (4.7-6.1); RED CELL DISTRIBUTION WIDTH 17.2 % (11.6-14.6)
[2020-11-25 06:55] LABS: CHLORIDE 105 mEq/L (98-107)
[2020-11-25 08:00] VITALS: BP 135/76
[2020-11-25] MEDS: ENOXAPARIN 40MG/0.4ML SYR SUBCUT SCH (08:01)
[2020-11-25] MEDS: METFORMIN HCL 500MG TABLET PO SCH ×2 (08:01→17:55)
[2020-11-25] MEDS: INSULIN LISPRO 100 UNITS/ML SUBCUT SCH ×4 (08:02→22:22)
[2020-11-25 10:00] LABS: PLATELET ESTIMATE DECREASED
[2020-11-25] MEDS: INSULIN GLARGINE UD 100 UNITS/ML SYR SUBCUT SCH ×2 (10:13→22:22)
[2020-11-25 12:00] VITALS: BP 138/92
[2020-11-25 16:00] VITALS: BP 130/76
[2020-11-25 20:00] VITALS: BP 155/92
[2020-11-25] MEDS: QUETIAPINE FUMARATE 50MG TABLET PO SCH (21:23)
[2020-11-26] VITALS (7 sets, daily range): BP systolic 125–149; BP diastolic 78–99
[2020-11-26] MEDS: IPRATROPIUM/ALBUTEROL 0.5-3(2.5)MG/3ML NEB HHN SCH ×3 (02:29→15:42)
[2020-11-26] MEDS: BLOOD SUGAR DIAGNOSTIC STRIP TEST SCH ×3 (07:01→17:27)
[2020-11-26] MEDS: OMEPRAZOLE 20MG CAPSULE EXTENDED RELEASE PO SCH ×2 (07:02→08:41)
[2020-11-26] MEDS: METFORMIN HCL 500MG TABLET PO SCH ×3 (07:02→17:29)
[2020-11-26] MEDS: INSULIN LISPRO 100 UNITS/ML SUBCUT SCH ×3 (08:40→17:28)
[2020-11-26] MEDS: ENOXAPARIN 40MG/0.4ML SYR SUBCUT SCH (08:42)
[2020-11-26] MEDS ORDERED: PREDNISONE 20MG TABLET PO SCH (09:00)
[2020-11-26] MEDS: INSULIN GLARGINE UD 100 UNITS/ML SYR SUBCUT SCH (09:22)
[2020-11-26] MEDS ORDERED: INSULIN GLARGINE UD 100 UNITS/ML SYR SUBCUT SCH (22:00)
== END 2020-11-26 20:25 | DRG 816 ==
LOC: ER 18:31 → 6WST 11-23 03:02 → EDBEDREQDT 11-23 03:07 → EDBEDREQ 11-23 03:07 → EDBEDREQTM 11-23 03:07 → ENRESERV 11-23 08:36
PROVIDERS: ADMIT Internal Medicine; ATTEND Internal Medicine
DX: T40.5X1A Poisoning by cocaine, accidental (unintentional), initial encounter (principal); J96.00 Acute respiratory failure, unspecified whether with hypoxia or hypercapnia; I11.0 Hypertensive heart disease with heart failure; I69.354 Hemiplegia and hemiparesis following cerebral infarction affecting left non-dominant side; F20.9 Schizophrenia, unspecified; I50.9 Heart failure, unspecified; J68.0 Bronchitis and pneumonitis due to chemicals, gases, fumes and vapors; F14.10 Cocaine abuse, uncomplicated; F31.9 Bipolar disorder, unspecified; E87.6 Hypokalemia; E11.9 Type 2 diabetes mellitus without complications; R47.1 Dysarthria and anarthria; G47.00 Insomnia, unspecified; Z87.891 Personal history of nicotine dependence; Z59.0 Homelessness; Z88.0 Allergy status to penicillin; Z88.8 Allergy status to other drugs, medicaments and biological substances; Y92.89 Other specified places as the place of occurrence of the external cause; Z71.51 Drug abuse counseling and surveillance of drug abuser
CPT/HCPCS: 36415; 71045; 80048; 82962; 83036; 83735; 83880; 84100; 84484; 85025; 93005; 93970; 94640; 97116; 97161; 97166; 99285; J1650; J1815; J1940; J2920; J2930; J7512